=== PATIENT | male | born 1960 | race Caucasian/White ===

== ENCOUNTER 2016-11-29 10:42 | Day surgery (SDC) | payer BC, OTHER ==
--- NOTE | 2016-11-29 08:22 | HP ---
PROCEDURE DATE: 11/29/16 HISTORY OF PRESENT ILLNESS: The patient is a 56 y/o with history of polyps in the past. Last colonoscopy 8 or 9 years ago. He denies any bloody stools. Has some problems with bowel movements off and on, some bloating, and some right-sided abdominal aches at times. PAST MEDICAL HISTORY: Hypertension. CURRENT MEDICATIONS: Lisinopril, baby aspirin, Prilosec, hydrochlorothiazide. ALLERGIES: NKDA. PAST SURGICAL HISTORY: Left ankle, both shoulders as well as colonoscopy in the past. FAMILY HISTORY: Brother with colon cancer. SOCIAL HISTORY: He denies smoking. He does chew 1 can a day. Does drink some alcohol. Denies abuse. REVIEW OF SYSTEMS: 12 systems reviewed. No chest pain or palpitations. Other systems negative or noncontributory other than above and per preadmission questionnaire. PHYSICAL EXAMINATION: GENERAL: No acute distress. HEENT: Sclerae nonicteric. NECK: No JVD. CHEST: Equal excursion. Nonlabored breathing. CVS: Regular rate and rhythm. ABDOMEN: Soft. No peritoneal signs. EXTREMITIES: No significant edema. NEURO: Alert, moving extremities symmetrically. No gross motor deficits noted. IMPRESSION: SOME VAGUE RIGHT ABDOMINAL ACHES AND SOME CHANGE IN BOWEL HABITS WITH OVERALL HISTORY OF POLYPS IN THE PAST IN NEED OF FOLLOW-UP SCREENING COLONOSCOPY. Will proceed with follow-up screening colonoscopy as an outpatient under MAC anesthesia. General risks of bleeding; infection; small risk of bowel injury or perforation; small risk of missed or nondiagnosis or inability to diagnose the etiology of his symptoms; general risk of anesthesia or sedation; risk of bowel prep; postoperative risk of nausea, vomiting, or cramping or inability to diagnose the cause of symptoms. He understands and agrees to the planned procedure. Will proceed with outpatient screening colonoscopy.
[~2016-11-29 10:42] MED LIST: DIPRIVAN 200 MG/20 ML IV ONE; Lactated Ringers 1,000 ML IV SCH; Versed 2 MG/2 ML Injection IV ONE
--- NOTE | 2016-11-29 13:02 | OP ---
SURGERY DATE/TIME: 11/29/2016 1145 PREOPERATIVE DIAGNOSIS: History of polyps, need for follow up screening colonoscopy. POSTOPERATIVE DIAGNOSES: 1) Somewhat poor prep limiting the exam. 2) Very tortuous colon. 3) Small polyps rectum and transverse colon, small raised lesion sigmoid colon and descending colon. 4) Diverticulosis. 5) Internal and external hemorrhoids. 6) Somewhat poor prep limiting exam. PROCEDURES: 1) Colonoscopy to terminal ileum. 2) Retrograde ileoscopy. 3) Hot snare polypectomy small rectal polyp. 4) Hot biopsy of small polyp distal transverse colon. 5) Hot biopsy descending colon, small raised lesion versus hyperplastic lesion. 6) Hot biopsy small raised lesion versus early polyp sigmoid colon. Again hot snare polypectomy with small rectal polyp. SURGEON: Dr. Nir Mcknight. ANESTHESIA: MAC. ESTIMATED BLOOD LOSS: Minimal. INDICATIONS: As noted above. Risks and benefits explained in detail but not limited to and consent obtained. DESCRIPTION OF PROCEDURE AND FINDINGS: The patient is taken to the operating room. MAC anesthesia induced. After official time out and no disagreement with planned procedure, digital rectal exam did not reveal any rectal masses. He did have some small internal and external hemorrhoids. Video colonoscope inserted and passed up the tortuous sigmoid, descending and transverse colon requiring positioning on his back and pushing on the abdomen to reduce the looping. The scope was able to be passed to the cecum and up into the terminal ileum. Retrograde ileoscopy was performed and was grossly unremarkable. On withdraw of the scope prep overall was somewhat poor with liquidy semi-solid stool and some foamy stool limiting the exam for small lesions. This was suction irrigated as well as possible but did limit the exam. The scope is slowly and carefully withdrawn. In the distal transverse colon small polyp was removed with hot biopsy forceps and brief bursts of cautery. Good hemostasis noted. In the descending colon small raised lesions removed with hot biopsy forceps with brief bursts of cautery. Good hemostasis noted. Otherwise the scope pulled back in the sigmoid. Another small raised lesion versus early polyp or hyperplastic lesions removed with hot biopsy forceps with brief bursts of cautery. Good hemostasis noted. The scope pulled back and retroflexed in the rectum. Small polyp noted in the mid to distal rectum this was removed with hot snare polypectomy with brief bursts of cautery. Good hemostasis. This was about 3 mm in size. Otherwise he had some diverticulosis, had some small internal and external hemorrhoids. There were no signs of any large polyps, masses or obstructing lesions. Good hemostasis. Findings were discussed with the family out in the waiting area. He was transferred back to the recovery room in stable condition.
[2016-11-29 13:07] VITALS: PULSE 68; O2SAT 98
[2016-11-29 13:31] VITALS: BP 164/96
== END 2016-11-29 13:25 | disposition home or self-care (01) ==
LOC: SDC 10:42
PROVIDERS: ATTEND Surgery
PROC: 0DJD8ZZ Inspection of Lower Intestinal Tract, Via Natural or Artificial Opening Endoscopic (ICD-10-PCS; principal; 2016-11-29)
PROC: 0DBP8ZX Excision of Rectum, Via Natural or Artificial Opening Endoscopic, Diagnostic (ICD-10-PCS; 2016-11-29)
PROC: 0DBL8ZX Excision of Transverse Colon, Via Natural or Artificial Opening Endoscopic, Diagnostic (ICD-10-PCS; 2016-11-29)
PROC: 0DBN8ZX Excision of Sigmoid Colon, Via Natural or Artificial Opening Endoscopic, Diagnostic (ICD-10-PCS; 2016-11-29)
PROC: 0DBM8ZX Excision of Descending Colon, Via Natural or Artificial Opening Endoscopic, Diagnostic (ICD-10-PCS; 2016-11-29)
DX: K62.1 Rectal polyp (principal); D12.3 Benign neoplasm of transverse colon; K63.9 Disease of intestine, unspecified; Z86.010 Personal history of colon polyps; Z12.11 Encounter for screening for malignant neoplasm of colon; K57.90 Diverticulosis of intestine, part unspecified, without perforation or abscess without bleeding; K64.4 Residual hemorrhoidal skin tags; K64.8 Other hemorrhoids; I10 Essential (primary) hypertension; Z79.899 Other long term (current) drug therapy
CPT/HCPCS: 00810; 36415; 88305; J2250; J2704

== ENCOUNTER 2019-02-12 16:03 | Inpatient (IN) | payer BC ==
--- NOTE | 2019-02-12 16:44 | ERPHSYRPT ---
- History of Present Illness Time Seen by Provider: 02/12/19 16:40 Source: patient Exam Limitations: no limitations Patient Subjective Stated Complaint: pt was sent over from x ray for multi DVT. he states he has been sob and has swelling to right calf for a couple days.he was told by [facility] family doc to come to er . Triage Nursing Assessment: pt walked in, resp labored, no cough, skin w/d/p,iv to right arm from x ray, Physician History: Pt is c/o shortness of breath for few days, had mid sternal chest pain yesterday , but resolved. He had outpatient evaluation today, venous Doppler of the right leg and CT angiogram of the lungs, revealed bilateral, nonoccluding PE and right occluding DVT. Pt has been stable, denies current pain, severe SOB, dizziness. Timing/Duration: day(s) (2) Activities at Onset: none Severity of Dyspnea-Max: mild Severity of Dyspnea-Current: mild Possible Cause: no prior episodes Modifying Factors: Improves With: activity Associated Symptoms: intermittent Allergies/Adverse Reactions: No Known Drug Allergies Allergy (Verified 02/12/19 16:25) Home Medications: Hydrochlorothiazide 25 mg [hydroDIURIL 25 MG] 25 mg PO DAILY 11/19/16 [ History] Lisinopril 40 mg PO DAILY 11/19/16 [History] Omeprazole 20 MG [Prilosec 20 mg] 20 mg PO DAILY 11/19/16 [History] Amlodipine Besylate 5 mg [Norvasc 5 mg] 5 mg PO DAILY 11/29/16 [History] Glucosam/Chond/Collagen/Hyalur [Glucosamine Chondroitin Cap] 40 mg PO DAILY 11/10 [History] Allopurinol [Zyloprim] 300 mg DAILY 02/12/19 [History] Hx Influenza Vaccination/Date Given: Yes Hx Pneumococcal Vaccination/Date Given: Yes Immunizations Up to Date: Yes - Review of Systems Constitutional: No Symptoms Ears, Nose, & Throat: No Symptoms Respiratory: Dyspnea Cardiac: No Symptoms Abdominal/Gastrointestinal: No Symptoms Musculoskeletal: No Symptoms Skin: No Symptoms Neurological: No Symptoms All Other Systems: Reviewed and Negative - Past Medical History Pertinent Past Medical History: Yes Neurological History: No Pertinent History ENT History: No Pertinent History Cardiac History: Hypertension Respiratory History: Asthma, Pneumonia Endocrine Medical History: No Pertinent History Musculoskeletal History: Fractures, Osteoarthritis, Other GI Medical History: GERD History: No Pertinent History Psycho-Social History: No Pertinent History Male Reproductive Disorders: No Pertinent History Other Medical History: LEFT KNEE ARTHROSCOPY 07/14, BILATERAL SHOULDER ARTHROSCOPY FOR BONE SPURS, RUPTURED BURSE, AND TENDON REPAIR (LEFT BICEPS) 2003. ORIF LEFT FOOT 1989 - Past Surgical History Past Surgical History: Yes Neuro Surgical History: No Pertinent History Cardiac: No Pertinent History Respiratory: No Pertinent History Gastrointestinal: No Pertinent History Genitourinary: No Pertinent History Musculoskeletal: Orthopedic Surgery, Other Male Surgical History: No Pertinent History Other Surgical History: pt states he has had rotator cuff repair on both shoulders, left ankle surgically repaired that still has screws in it. Pt has had cancerous moles removed as well. - Social History Smoking Status: Smoker, status unknown Exposure to second hand smoke: No Drug Use: none Patient Lives Alone: No - Nursing Vital Signs Nursing Vital Signs: Initial Vital Signs Temperature 97.5 F 02/12/19 16:16 Pulse Rate 87 02/12/19 16:16 Respiratory Rate 20 02/12/19 16:16 Blood Pressure 135/77 02/12/19 16:16 O2 Sat by Pulse Oximetry 98 02/12/19 16:16 Pain Scale Pain Intensity 7 - Physical Exam General Appearance: no apparent distress Eye Exam: eyes nml inspection Ears, Nose, Throat Exam: normal ENT inspection Neck Exam: normal inspection, non-tender, supple, No carotid bruit, No JVD Respiratory Exam: normal breath sounds, lungs clear, airway intact Cardiovascular/Chest Exam: normal heart sounds, regular rate/rhythm, normal peripheral pulses, No murmur, No edema, No JVD Abdominal/Gastrointestinal Exam: soft, normal bowel sounds Extremity Exam: normal inspection, no pedal edema, calf tenderness (right: mild) , No pedal edema, No andrew's sign Peripheral Pulses Exam: dorsalis-pedis (R): 2+, dorsalis-pedis (L): 2+ Neurologic Exam: alert, oriented x 3, normal mood/affect Skin Exam: normal color, warm, dry, No rash, No cyanosis, No diaphoresis Lymphatic Exam: No adenopathy SpO2 Interpretation: normal SpO2: 98 O2 Delivery: Room Air - Course Nursing assessment & vital signs reviewed: Yes EKG Interpreted by Me: RATE (82/min), Left Keo Deviation, NORMAL INTERVALS, NORMAL QRS, NORMAL ST-T Ordered Tests: Active Orders 24 hr Category Date Time Status EKG-ER Only STAT Care 02/12/19 16:37 Active IV Insertion STAT Care 02/12/19 16:37 Active MAGNESIUM Stat Lab 02/12/19 15:35 Received TROPONIN Q3H Lab 02/12/19 15:35 Received TROPONIN Q3H Lab 02/12/19 19:45 Ordered TROPONIN Q3H Lab 02/12/19 22:45 Ordered TROPONIN Q3H Lab 02/13/19 01:45 Ordered TROPONIN Q3H Lab 02/13/19 04:45 Ordered Medication Summary Generic Name Dose Route Start Last Admin Trade Name Freq PRN Reason Stop Dose Admin Sodium Chloride 1,000 mls @ 999 mls/hr 02/12/19 17:05 02/12/19 17:16 Sodium Chloride 0.9% 1000 Ml IV 02/12/19 18:05 999 mls/hr .Q1H1M STA Administration Discontinued Medications Generic Name Dose Route Start Last Admin Trade Name Freq PRN Reason Stop Dose Admin Enoxaparin Sodium 110 mg 02/12/19 17:06 Enoxaparin Sodium 1 mg/kg (110 mg) 02/12/19 17:07 SQ NOW ONE Enoxaparin Sodium Confirm 02/12/19 17:20 Enoxaparin Sodium Administered 02/12/19 17:21 Dose 120 mg SQ .STK-MED ONE Fentanyl Citrate 50 mcg 02/12/19 17:05 02/12/19 17:16 Sublimaze 100 Mcg/2 Ml IV 02/12/19 17:06 50 mcg STAT ONE Administration Fentanyl Citrate Confirm 02/12/19 17:08 Sublimaze 100 Mcg/2 Ml Administered 02/12/19 17:09 Dose 100 mcg .ROUTE .STK-MED ONE Sodium Chloride Confirm 02/12/19 17:08 Sodium Chloride 0.9% 1000 Ml Administered 02/12/19 17:09 Dose 1,000 mls @ ud .ROUTE .STK-MED ONE Ondansetron HCl 4 mg 02/12/19 17:05 02/12/19 17:16 Zofran 4 Mg/2 Ml Vial IV 02/12/19 17:06 4 mg STAT ONE Administration Ondansetron HCl Confirm 02/12/19 17:07 Zofran 4 Mg/2 Ml Vial Administered 02/12/19 17:08 Dose 4 mg .ROUTE .STK-MED ONE - Progress Progress: unchanged Air Movement: good Progress Note: 02/12/19 17:26 Pt has been stable, O 2 sat: 98 % on RA, given Fentanyl for pain, and started on IV saline, also given 110 mg Lovenox SQ and called Dr Jenkins, discussed this patient's case in details, she accepted patient to be admitted for observation, patient was informed and agreed. Discussed with .: Gregory Will see patient in: hospital (observation) Counseled pt/family regarding: lab results, diagnosis, rad results - Departure Departure Disposition: Observation Clinical Impression: Pulmonary embolism Qualifiers: Pulmonary embolism type: unspecified Chronicity: acute Acute cor pulmonale presence: without acute cor pulmonale Qualified Code(s): I26.99 - Other pulmonary embolism without acute cor pulmonale Deep venous thrombosis Qualifiers: DVT location: lower extremity Affected thrombotic vein of extremity: popliteal Chronicity: acute Laterality: right Qualified Code(s): I82.431 - Acute embolism and thrombosis of right popliteal vein Clinical Impression: (Ruled Out): Pulmonary embolism and infarction Condition: Stable Critical Care Time: No Referrals: ENRICO QUIJANO [Primary Care Provider] -
[2019-02-12] MEDS ORDERED: Zofran 4 MG/2 ML VIAL IV ONE (17:05)
[2019-02-12] MEDS ORDERED: SUBLIMAZE 100 MCG/2 ML IV ONE (17:05)
[2019-02-12] MEDS ORDERED: Sodium Chloride 0.9% 1000 ML 1,000 ML IV STA (17:05)
[2019-02-12] MEDS ORDERED: ENOXAPARIN SODIUM SQ ONE ×2 (17:06→17:20)
[2019-02-12] MEDS ORDERED: Zofran 4 MG/2 ML VIAL ONE (17:07)
[2019-02-12] MEDS ORDERED: Sodium Chloride 0.9% 1000 ML 1,000 ML ONE (17:08)
[2019-02-12] MEDS ORDERED: SUBLIMAZE 100 MCG/2 ML ONE (17:08)
[2019-02-12] MEDS ORDERED: Zofran 4 MG/2 ML VIAL IV PRN (17:30)
[2019-02-12] MEDS ORDERED: DUONEB 0.5-3 MG/3 ml Neb IH PRN (17:30)
[2019-02-12] MEDS: MORPHINE SULFATE 4 MG INJ IV PRN ×2 (18:56→22:59)
[2019-02-13 04:45] LABS: Basophil (Absolute #) 0.06 (0-0.4); Eosinophil % 3.8 % (0.00-5.0); Eosinophil (Absolute #) 0.23 (0-0.5); Granulocyte Absolute (ANC) 2.25 (1.4-6.9); Granulocytes % 37.1 % (36.0-66.0); Hematocrit 40.8 % (42-50); Hemoglobin 13.5 gm/dl (12.5-18.0); Lymphocyte (Absolute #) 2.38 (1.0-4.6); Lymphocytes % 39.2 % (24.0-44.0); Mean Cell Volume 93.4 fl (78-100); Mean Corpuscular Hemoglobin 30.9 pg (26-32); Mean Corpuscular Hgb Concent. 33.1 g/dl (32-36); Mean Platelet Volume 9.9 fl (6-9.5); Monocyte (Absolute #) 1.15 (0.0-1.3); Monocytes % 18.9 % (0.0-12.0); Platelet Count 145 K/mm3 (150-450); Red Blood Count 4.37 M/mm3 (4.1-5.6); Red Cell Distribution Width 12.3 % (11.5-14.0); White Blood Count 6.1 K/mm3 (4.0-10.5)
[2019-02-13 04:51] LABS: INR 1.1 (0.8-3.0); PROTIME 12.5 SECONDS (8.83-12.87)
[2019-02-13 04:57] LABS: ANION GAP 9.3 MEQ/L (5-15); BLOOD UREA NITROGEN 11 mg/dL (9-20); CHLORIDE 101 mmol/L (98-107); Calcium 8.3 mg/dL (8.4-10.2); Carbon Dioxide 28 mmol/L (22-30); Creatinine 1 0.68 mg/dL (0.66-1.25); Glucose 111 mg/dL (74-106); Potassium 3.8 mmol/L (3.5-5.1); SODIUM 135 mmol/L (137-145)
[2019-02-13] MEDS: ENOXAPARIN SODIUM SQ SCH ×2 (06:35→17:48)
--- NOTE | 2019-02-13 09:26 | HP ---
HISTORY OF PRESENT ILLNESS: This is a 58 year-old patient of nurse practitioner, Sapna Guzman, who presented to her office yesterday complaining of right leg pain as well as swelling and also shortness of breath. He reports that last week his right leg starting hurting and the pain got worse on Tuesday. He had seen Nurse Practitioner Megan on and was to have an x-ray of his knee because his knee had been a little bit swollen and tender. He reports the swelling continued to get worse over the weekend. By Tuesday he reports that he had trouble walking on his leg and the swelling was worse. He started to have pain in his calf on Tuesday and it was also worse Tuesday. He reports he had dyspnea on Tuesday and chest pain Tuesday night. He denies any injury to his leg. His nurse practitioner ordered a Doppler of his right lower extremity and a d-dimer and then also a CT scan of his chest. He was found to have nonobstructing bilateral pulmonary emboli and a right DVT. He was sent to the ER for stabilization. No history of blood clot for him. No long car rides. No recent surgery. His last surgery was May 2018 when he had his left knee replaced. He reports his maternal grandmother had a deep venous thrombosis and he had a maternal aunt that had a clotting problem. His mother has not had any clotting problems. The patient reports the swelling and pain is better in his right leg after coming into the hospital. He reports he did not sleep well and is tired today. REVIEW OF SYSTEMS: No palpitations. He has had constipation. No diarrhea. Normal urination. He had tactile fever. No rashes. MEDICATIONS: Please see the home medication reconciliation form which I have reviewed. ALLERGIES: NKDA. PAST MEDICAL HISTORY: Gout. Hypertension. Hyperlipidemia. Bronchial asthma but he does not use an inhaler at home. PAST SURGICAL HISTORY: Left knee replaced May 2018 in [place]. He had arthroscopic surgery of his left knee June 2017. He has two screws in his left foot after he had a fracture. He has had bilateral shoulder arthroscopy. Tonsil and adenoidectomy as a child. SOCIAL HISTORY: He is . He quit smoking 12 years ago, was smoking one-half to one pack per day. He does chew tobacco. He has thought about quitting. Alcohol use he reports a half a case per weekend. He denies any withdrawal symptoms. 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 FAMILY HISTORY: His mother has congestive heart failure and asthma. His father was at 40 in a car accident and was a heavy smoker. PHYSICAL EXAMINATION: VITAL SIGNS: Temperature current 98.5F, temperature max 100.4F, heart rate 69 to 96 currently 75, respiratory rate 16 to 24 currently 18, blood pressure 100 to 135 over 54 to 75, weight 106 kg. Oxygen saturation 90 to 97% on 2 liters cannula. He was on room air until this a.m. GENERAL: The patient is a pleasant talkative man sitting up in bed in no acute distress. CVS: He has a regular rate and rhythm. No murmurs, gallops or rubs are appreciated. CHEST: He has fine crackles at the left base. No wheezing. Equal breath sounds. No tachypnea. No retractions. ABDOMEN: Soft, nontender, nondistended with normal bowel sounds. EXTREMITIES: Mild swelling of his right lower extremity. No clubbing, cyanosis or edema. He has +2 dorsalis pulses bilaterally and radial pulses bilaterally. SKIN: No rashes. LABORATORY DATA AND TESTS: His PLT count was 145,000 this a.m. Sodium 135, chloride 111. He has had serial negative troponins. He has been on telemetry with no events. EKG is sinus rhythm, no ST changes. Heart rate 82. Normal EKG. As an outpatient before his admission he had chest CT that had shown new diffuse bilateral nonoccluding emboli and a Doppler of his right lower extremity that revealed occluding deep venous thrombosis in the mid to distal femoral vein, popliteal vein and posterior tibial vein. Please see the radiologist report for the full dictation. ASSESSMENT AND PLAN: 1) BILATERAL PULMONARY EMBOLI: He was started on Lovenox in the emergency room which we are continuing 1 mg/kg every 12 hours. His case was discussed with cryptologist, Dr. John Barraza, and he plans to come to see him tomorrow. Will plan to continue the Lovenox for at least two days before switching to oral anticoagulation. I have ordered Doppler of his left lower extremity as well. He is on telemetry and may ambulate to a bedside commode but no long walks. He, of course, will need to be on oral anticoagulation for at least three months and I discussed with the patient will need to choose between the newer anticoagulants or Coumadin. At this time though we are continuing Lovenox. We are watching his vital signs closely, will call order if his blood pressure is low to call or heart rate high. Please see those orders in the chart. When I discussed with Dr. Barraza, he wanted to check CEA and PSA to rule out occult cancer. The patient is followed closely with colonoscopies as an outpatient as he has a strong family history of colon cancer. 2) RIGHT DEEP VENOUS THROMBOSIS: Again, he is on anticoagulation as above. Also, check his left lower extremity Doppler to look for clot there. 3) HYPERTENSION: Currently well controlled, will hold his antihypertensive and watch his blood pressure carefully. 4) HYPERLIPIDEMIA: Will continue with statin. 5) GOUT: Will continue his Allopurinol. 6) ALCOHOL DEPENDENCE: Will watch for signs of withdrawal. 7) THROMBOCYTOPENIA: Will recheck his platelet count in the a.m. and watch this closely as he is on heparin product. 8) HYPONATREMIA: Will start some gentle fluids with normal saline at 60 ml/hour. 9) DEEP VENOUS THROMBOSIS PROPHYLAXIS: He is on Lovenox so will avoid KORTNEY hose due to the deep venous thrombosis.
[2019-02-13] MEDS ORDERED: MEDICATION INTERVENTION PO SCH (09:45)
[2019-02-13] MEDS ORDERED: CHOND PO SCH (10:00)
[2019-02-13] MEDS ORDERED: GLUCOSAM PO SCH (10:00)
[2019-02-13] MEDS ORDERED: NON-FORMULARY ITEM (Rosuvastatin Calcium [Crestor] 10 MG) PO SCH (10:00)
[2019-02-13] MEDS ORDERED: COLLAGEN PO SCH (10:00)
[2019-02-13] MEDS ORDERED: NON-FORMULARY ITEM (Omeprazole 20 Mg [Prilosec 20 Mg] 20 MG) PO SCH (10:00)
[2019-02-13] MEDS ORDERED: HYALUR PO SCH (10:00)
[2019-02-13] MEDS: Colace 100 MG PO SCH ×2 (10:13→20:56)
[2019-02-13] MEDS: ZOCOR 20MG PO SCH (10:13)
[2019-02-13] MEDS: ZYLOPRIM 300 MG PO SCH (10:14)
[2019-02-13] MEDS: Protonix 40MG Tablet PO SCH (10:14)
--- NOTE | 2019-02-13 10:33 | XRAY ---
Indication: PE. Right lower extremity DVT. Two-dimensional sonogram and color Doppler imaging of the major venous vessels of the left leg was performed. Comparison: None No echogenic thrombus seen in the examined deep venous vessels of the left leg including greater saphenous vein. However the common femoral vein did not compress, a secondary sign for DVT. Remaining veins demonstrate normal compressibility with normal venous waveforms with and without augmentation. Impression: Noncompressible common femoral vein, a secondary sign for DVT. Remaining left leg negative for DVT.
[2019-02-13] MEDS ORDERED: BENADRYL 25 MG CAPSULE PO PRN (18:40)
[2019-02-13] MEDS ORDERED: BENADRYL 25 MG CAPSULE ONE (20:38)
[2019-02-13] MEDS: TYLENOL 325 MG PO PRN (20:56)
[2019-02-13] MEDS: BENADRYL 25 MG CAPSULE PO PRN (20:56)
[2019-02-13] MEDS: Sodium Chloride 0.9% 1000 ML 1,000 ML IV SCH (21:00)
[2019-02-14 05:47] LABS: BASOPHIL % 1.3 % (0.0-0.4); Basophil (Absolute #) 0.06 (0-0.4); Eosinophil % 6.5 % (0.00-5.0); Eosinophil (Absolute #) 0.29 (0-0.5); Granulocyte Absolute (ANC) 1.88 (1.4-6.9); Granulocytes % 42.1 % (36.0-66.0); Hematocrit 40.7 % (42-50); Hemoglobin 13.5 gm/dl (12.5-18.0); Lymphocyte (Absolute #) 1.36 (1.0-4.6); Lymphocytes % 30.4 % (24.0-44.0); Mean Cell Volume 94.4 fl (78-100); Mean Corpuscular Hemoglobin 31.3 pg (26-32); Mean Corpuscular Hgb Concent. 33.2 g/dl (32-36); Mean Platelet Volume 11.1 fl (6-9.5); Monocyte (Absolute #) 0.88 (0.0-1.3); Monocytes % 19.7 % (0.0-12.0); Platelet Count 153 K/mm3 (150-450); Red Blood Count 4.31 M/mm3 (4.1-5.6); Red Cell Distribution Width 11.9 % (11.5-14.0); White Blood Count 4.5 K/mm3 (4.0-10.5)
[2019-02-14 05:56] LABS: BLOOD UREA NITROGEN 6 mg/dL (9-20); CHLORIDE 103 mmol/L (98-107); Calcium 8.8 mg/dL (8.4-10.2); Carbon Dioxide 26 mmol/L (22-30); Glucose 139 mg/dL (74-106); Potassium 3.9 mmol/L (3.5-5.1); SODIUM 136 mmol/L (137-145)
[2019-02-14] MEDS: ENOXAPARIN SODIUM SQ SCH ×2 (06:46→17:40)
[2019-02-14] MEDS: TYLENOL 325 MG PO PRN ×3 (07:54→20:19)
--- NOTE | 2019-02-14 08:21 | PCM.NOTE ---
Date and Time: 02/14/19815 Subjective Assessment: Patient reports he started to have some pain in his right calf again yesterday. He states it is not as bad as when the problem first started. He continues to feel short of breath at times. He has been able to ambulated to the bathroom and doesn't want to use the bedside commode. He was able to have a stool. He reports 4 hours of sleep last night after taking benadryl. Dr. Donna Barraza, lpn per diem, plans to see patient today. - Review of Systems Constitutional: Fatigue Eyes: No Symptoms Ears, Nose, & Throat: No Symptoms Respiratory: Short Of Breath Cardiac: No Chest Pain Abdominal/Gastrointestinal: No Abdominal Pain, No Diarrhea, No Constipation Genitourinary Symptoms: No Symptoms Musculoskeletal: Other (right calf pain) Objective Exam General Appearance: no apparent distress, alert Neurologic Exam: alert, cooperative, normal mood/affect Skin Exam: normal color, warm, dry, No rash Respiratory Exam: normal breath sounds, lungs clear, No crackles/rales, No rhonchi, No wheezing Cardiovascular Exam: regular rate/rhythm, normal heart sounds, No murmur, No friction rub, No gallop Gastrointestinal/Abdomen Exam: soft, normal bowel sounds, No tenderness, No distention, No mass Extremity Exam: other (right calf bigger than left, no c/c) Back Exam: other OBJECTIVE DATA Vital Signs: Vital Signs - 24 hr Temp Pulse Resp BP Pulse Ox 02/14/19 08:00 98.3 F 78 18 142/79 94 L 02/14/19 04:10 98.5 F 72 16 143/77 94 L 02/14/19 04:00 16 02/14/19 00:18 98.4 F 75 20 134/74 97 02/14/19 00:00 20 02/13/19 20:13 79 19 98 02/13/19 20:10 98.7 F 73 21 130/80 97 02/13/19 20:00 19 02/13/19 16:00 98.1 F 78 18 134/87 98 02/13/19 12:00 78 18 114/63 97 Oxygen-Last 24 hours O2 Percentage 2 Liters = 28% O2 Percentage 2 Liters = 28% O2 Percentage 2 Liters = 28% O2 Percentage 2 Liters = 28% O2 Percentage 2 Liters = 28% O2 Percentage 2 Liters = 28% Pain Assessment - Last Documented Pain Intensity 2 Pain Scale Used 0-10 Pain Scale Intake and Output: Intake & Output 02/12/19 02/13/19 02/14/19 02/15/19 06:59 06:59 06:59 06:59 Intake Total 975 0792 Balance 720 2172 Weight 106 kg Lab Results: Lab Results-Last 24 Hours 02/13/19 02/13/19 02/14/19 Range/Units 05:00 08:45 05:18 WBC 4.5 (4.0-10.5) K/mm3 RBC 4.31 (4.1-5.6) M/mm3 Hgb 13.5 (12.5-18.0) gm/dl Hct 40.7 L (42-50) % MCV 94.4 (78-100) fl MCH 31.3 (26-32) pg MCHC 33.2 (32-36) g/dl RDW 11.9 (11.5-14.0) % Plt Count 153 (150-450) K/mm3 MPV 11.1 H (6-9.5) fl Gran % 42.1 (36.0-66.0) % Eos # (Auto) 0.29 (0-0.5) Absolute Lymphs (auto) 1.36 (1.0-4.6) Absolute Monos (auto) 0.88 (0.0-1.3) Lymphocytes % 30.4 (24.0-44.0) % Monocytes % 19.7 H (0.0-12.0) % Eosinophils % 6.5 H (0.00-5.0) % Basophils % 1.3 (0.0-0.4) % Absolute Granulocytes 1.88 (1.4-6.9) Basophils # 0.06 (0-0.4) Sodium (137-145) mmol/L Potassium (3.5-5.1) mmol/L Chloride (98-107) mmol/L Carbon Dioxide (22-30) mmol/L Anion Gap (5-15) MEQ/L BUN (9-20) mg/dL Creatinine (0.66-1.25) mg/dL Estimated GFR ML/MIN Glucose (74-106) mg/dL Calcium (8.4-10.2) mg/dL Carcinoembryonic Ag 1.6 (0.0-3.1) ng/mL PSA Screen 0.598 (0-4) ng/mL 02/14/19 Range/Units 05:18 WBC (4.0-10.5) K/mm3 RBC (4.1-5.6) M/mm3 Hgb (12.5-18.0) gm/dl Hct (42-50) % MCV (78-100) fl MCH (26-32) pg MCHC (32-36) g/dl RDW (11.5-14.0) % Plt Count (150-450) K/mm3 MPV (6-9.5) fl Gran % (36.0-66.0) % Eos # (Auto) (0-0.5) Absolute Lymphs (auto) (1.0-4.6) Absolute Monos (auto) (0.0-1.3) Lymphocytes % (24.0-44.0) % Monocytes % (0.0-12.0) % Eosinophils % (0.00-5.0) % Basophils % (0.0-0.4) % Absolute Granulocytes (1.4-6.9) Basophils # (0-0.4) Sodium 136 L (137-145) mmol/L Potassium 3.9 (3.5-5.1) mmol/L Chloride 103 (98-107) mmol/L Carbon Dioxide 26 (22-30) mmol/L Anion Gap 11.0 (5-15) MEQ/L BUN 6 L (9-20) mg/dL Creatinine 0.50 L (0.66-1.25) mg/dL Estimated GFR > 60.0 ML/MIN Glucose 139 H (74-106) mg/dL Calcium 8.8 (8.4-10.2) mg/dL Carcinoembryonic Ag (0.0-3.1) ng/mL PSA Screen (0-4) ng/mL Radiology Exams: Radiology Procedures Category Date Time Status Ultrasound Unilateral Extremities [VENOUS UNILAT/ Exams 02/13/19 10:14 Completed LIMITED EXTREMIT] [US] Routine Assessment/Plan (1) Pulmonary emboli Current Visit: Yes Status: Acute Assessment & Plan: Continue lovenox 1 mg/kg subcutanously q [address] Donna Barraza to see patient today. He had recommended continuing lovenox for at least 48 hours before starting an oral anticoagulant. Patient has been requiring 2 L NC and does not wear oxygen at home. CEA and PSA as requested by Dr. Barraza were normal. Will need hypercoaguable work up in the future. Code(s): I26.99 - OTHER PULMONARY EMBOLISM WITHOUT ACUTE COR PULMONALE (2) Deep venous thrombosis Current Visit: Yes Status: Acute Qualifiers: DVT location: lower extremity Affected thrombotic vein of extremity: popliteal Chronicity: acute Laterality: right Qualified Code(s): I82.431 - Acute embolism and thrombosis of right popliteal vein Assessment & Plan: Continue anticoagulation as above. Code(s): I82.409 - ACUTE EMBOLISM AND THOMBOS UNSP DEEP VN UNSP LOWER EXTREMITY (3) Essential hypertension Current Visit: Yes Status: Acute Assessment & Plan: He is currently off of antihypertensives but his systolic bp is now in the 140' s so will plan to start medications back slowly as needed. Code(s): I10 - ESSENTIAL (PRIMARY) HYPERTENSION (4) Hyperlipidemia Current Visit: Yes Status: Acute Assessment & Plan: Continue statin. Code(s): E78.5 - HYPERLIPIDEMIA, UNSPECIFIED (5) Gout Current Visit: Yes Status: Acute Assessment & Plan: Continue allopurinol. Code(s): M10.9 - GOUT, UNSPECIFIED (6) Hyponatremia Current Visit: Yes Status: Acute Assessment & Plan: Improved with IV fluids. Code(s): E87.1 - HYPO-OSMOLALITY AND HYPONATREMIA (7) Alcohol dependence Current Visit: Yes Status: Acute Assessment & Plan: No signs of withdrawal at this time. Code(s): F10.20 - ALCOHOL DEPENDENCE, UNCOMPLICATED (8) Thrombocytopenia Current Visit: Yes Status: Resolved Assessment & Plan: Platelet count normal today; continue to monitor.
[2019-02-14] MEDS: ZYLOPRIM 300 MG PO SCH (10:48)
[2019-02-14] MEDS: Colace 100 MG PO SCH ×3 (10:48→21:46)
[2019-02-14] MEDS: ZOCOR 20MG PO SCH (10:48)
[2019-02-14] MEDS: Protonix 40MG Tablet PO SCH (10:48)
[2019-02-14] MEDS: Sodium Chloride 0.9% 1000 ML 1,000 ML IV SCH (14:45)
--- NOTE | 2019-02-14 15:04 | CONS ---
CONSULT DATE: 02/14/2019 HISTORY: Tyler Reyna is a 58 year-old male without significant past pulmonary problems, who recently started experiencing right leg pain. The patient was referred for a Doppler study which was extensively positive. He also reported increasing shortness of breath and he was referred from there to the emergency room where CT was obtained that showed bilateral pulmonary emboli. The patient has since been hospitalized. He has been noted to have marginal oxygenation and has been placed on supplemental oxygen. In addition, he was started on anticoagulation with full dose Lovenox. The patient does report improvement in shortness of breath since being in hospital. He reportedly had history of bronchial asthma but out grew it. His effort tolerance otherwise has been compromised by arthritis more than pulmonary or cardiac symptoms. PAST MEDICAL HISTORY: Positive for history of osteoarthritis requiring multiple orthopedic surgeries. The patient recently was diagnosed having hypertension, borderline diabetes and hyperlipidemia. PAST SURGICAL HISTORY: Left knee replacement. Bilateral shoulder surgery. PERSONAL AND SOCIAL HISTORY: The patient is a nonsmoker. He works for a [employer]. FAMILY HISTORY: Positive for pulmonary embolism in his grandmother and his aunt had vascular insufficiency requiring amputation. MEDICATIONS: Home and current medications are reviewed. ALLERGIES: NKDA. PHYSICAL EXAMINATION: This is a middle aged male who appears comfortable at rest, able to speak without difficulty. Vital signs noted. HEENT: Normocephalic. Oral exam is limited. NECK: Supple. CVS: First and second heart sounds are normal, regular, rhythmic. RESPIRATORY: Shows diminished breath sounds. ABDOMEN: Obese. EXTREMITIES: Left knee scar is noted. Right lower extremity mild tenderness is noted. LABORATORY DATA AND TESTS: CEA is 1.6. Sodium 136, potassium 3.9, chloride 103, bicarb 26, glucose 139, BUN 6, creatinine 0.5. White blood cell count 4.5. Hemoglobin 13.5, hematocrit 40.7, PLT 153,000. PSA 0.59. International normalized ratio 1.1. Troponin I has been negative. CT chest along with venous Doppler's are noted. ASSESSMENT: This is a 58 year old male admitted with: 1) Right lower extremity extensive deep venous thrombosis with multiple bilateral pulmonary emboli likely from fragmentation of clot from right lower extremity. 2) Hypoxemia, transient. 3) History of hypertension. 4) Rule out hypercoagulable state. 5) History of borderline diabetes and hyperlipidemia along with obesity. RECOMMENDATIONS: 1) I discussed with patient pathophysiology of pulmonary thromboembolism. 2) I agree with anticoagulation option discussed. Would benefit from Eliquis 10 mg p.o. b.i.d. x7 days followed by 5 mg p.o. b.i.d. and will initiate this tomorrow. 3) Ambulate gradually. 4) May discharge home when oxygenation remains stable with ambulation. 5) Advised to stay off work for two weeks. I will see the patient in two weeks and follow up so he can be cleared to go back to work. I have discussed with the patient the need for repeating Doppler's as well as CT-angiogram in about four to six months to assess documentation of complete resolution of clot burden. At that point he can possibly be briefly taken off of anticoagulation and checked for hypercoagulable state to determine etiology. Further recommendations pending results of those and clinical improvement. I discussed the plan of care with the patient. Thank you, Dr. Jenkins, for allowing me to participate in the care of your patient.
[2019-02-14] MEDS ORDERED: NORVASC 5 MG PO ONE (17:00)
[2019-02-14] MEDS: BENADRYL 25 MG CAPSULE PO PRN (21:46)
[2019-02-15 04:48] LABS: BASOPHIL % 0.6 % (0.0-0.4); Basophil (Absolute #) 0.03 (0-0.4); Eosinophil % 6.4 % (0.00-5.0); Eosinophil (Absolute #) 0.31 (0-0.5); Granulocyte Absolute (ANC) 1.91 (1.4-6.9); Granulocytes % 39.3 % (36.0-66.0); Hematocrit 40.8 % (42-50); Hemoglobin 13.5 gm/dl (12.5-18.0); Lymphocyte (Absolute #) 1.87 (1.0-4.6); Lymphocytes % 38.6 % (24.0-44.0); Mean Cell Volume 94.7 fl (78-100); Mean Corpuscular Hemoglobin 31.3 pg (26-32); Mean Corpuscular Hgb Concent. 33.1 g/dl (32-36); Mean Platelet Volume 10.4 fl (6-9.5); Monocyte (Absolute #) 0.73 (0.0-1.3); Monocytes % 15.1 % (0.0-12.0); Platelet Count 176 K/mm3 (150-450); Red Blood Count 4.31 M/mm3 (4.1-5.6); Red Cell Distribution Width 11.9 % (11.5-14.0); White Blood Count 4.9 K/mm3 (4.0-10.5)
[2019-02-15 05:01] LABS: ANION GAP 9.9 MEQ/L (5-15); BLOOD UREA NITROGEN 6 mg/dL (9-20); CHLORIDE 105 mmol/L (98-107); Calcium 8.7 mg/dL (8.4-10.2); Carbon Dioxide 28 mmol/L (22-30); Creatinine 1 0.65 mg/dL (0.66-1.25); Glucose 108 mg/dL (74-106); Potassium 4.4 mmol/L (3.5-5.1); SODIUM 138 mmol/L (137-145)
[2019-02-15] MEDS: Sodium Chloride 0.9% 1000 ML 1,000 ML IV SCH (07:37)
[2019-02-15] MEDS: Protonix 40MG Tablet PO SCH (09:43)
[2019-02-15] MEDS: ZYLOPRIM 300 MG PO SCH (09:43)
[2019-02-15] MEDS: ZOCOR 20MG PO SCH (09:44)
[2019-02-15] MEDS: Colace 100 MG PO SCH (09:45)
[2019-02-15] MEDS ORDERED: ELIQUIS 2.5 MG TABLET PO SCH (10:00)
[2019-02-15] MEDS ORDERED: NORVASC 5 MG PO SCH (10:00)
--- NOTE | 2019-02-15 12:53 | PCM.DCORD ---
- Discharge Discharge Date: 02/15/19 Disposition: Home, Self-Care Condition: Fair Prescriptions: New Apixaban [Eliquis] 10 mg PO BID #26 tablet Apixaban [Eliquis] 5 mg PO BID #60 tablet Continue Omeprazole 20 MG [Prilosec 20 mg] 20 mg PO DAILY Amlodipine Besylate 5 mg [Norvasc 5 mg] 5 mg PO DAILY Glucosam/Chond/Collagen/Hyalur [Glucosamine Chondroitin Cap] 40 mg PO DAILY Allopurinol [Zyloprim] 300 mg PO DAILY Rosuvastatin Calcium [Crestor] 10 mg PO DAILY Discontinued Hydrochlorothiazide 25 mg [hydroDIURIL 25 MG] 25 mg PO DAILY Lisinopril 40 mg PO DAILY Additional Instructions: Take Eliquis 10 mg twice a day for a total of 7 days (as written on prescription ) then start Eliquis 5 mg twice a day after this. Try to separate the doses of Eliquis by 12 hours. Do not skip doses of Eliquis. Return to the ER if you have chest pain, shortness of breath, any bleeding or any other concerns. You have not needed as much blood pressure medication as you usually take. I have restarted your amlodipine and we can follow up as an outpatient to see if you will need your other blood pressure medications started at that time. Follow up with: MARYLU RUIZ [ACTIVE STAFF] - 02/28/19 2:30 pm AGAPITO PUGH [ACTIVE STAFF] - 1 Week
[2019-02-15 13:07] VITALS: BP 150/89; PULSE 77; O2SAT 93
--- NOTE | 2019-02-15 14:24 | DS ---
DISCHARGE DIAGNOSES: 1) BILATERAL PULMONARY EMBOLI. 2) RIGHT AND LEFT DEEP VENOUS THROMBOSIS. 3) HYPERTENSION. 4) HYPERLIPIDEMIA. 5) GOUT. 6) ALCOHOL DEPENDENCE. DISCHARGE PHYSICAL EXAMINATION: VITALS: Temperature current 98.1F, temperature max 98.5F, heart rate 78, respiratory rate 17, blood pressure 119 to 146 over 63 to 70, weight 106 kg. Oxygen saturation 94 to 96% on room air. When he ambulated with the respiratory therapist his O2 saturation was 97% on room air at rest and while walking was 96-98%. GENERAL: The patient is a pleasant talkative man sitting up in bed in no acute distress. CVS: He has a regular rate and rhythm. No murmurs, gallops or rubs. CHEST: Clear to auscultation bilaterally. No crackles or wheezes. ABDOMEN: Soft, nontender, nondistended with normal bowel sounds. EXTREMITIES: No clubbing or edema. His right leg is swollen in comparison to his left leg. No pitting edema. HOSPITAL COURSE: 1) BILATERAL PULMONARY EMBOLI: These were found on chest CT done as an outpatient. The patient had been directed to the emergency room for stabilization. He was given Lovenox 1 mg/kg subcutaneously every [address] John Barraza, Swing Manager, saw him during his hospitalization and discussed with the patient oral anticoagulation. He was switched to Eliquis on the day of discharge. He is to take 10 mg twice a day for seven days and 5 mg twice a day after that. We discussed signs of bleeding and not climbing ladders. Dr. Barraza wants him to be off work for two weeks and to follow up with him to release to go back to work. Dr. Barraza also said that he will continue on anticoagulation for four to six months, to repeat the chest CT as well as Doppler's. If there is no clot seen at that time he may go off anticoagulation briefly for blood test to look for underlying causes for the hypercoagulable state. 2) BILATERAL DEEP VENOUS THROMBOSIS: As an outpatient he had extensive deep venous thrombosis in his right leg. The left leg Doppler was concerning for possible deep venous thrombosis as well. Again, he has been fully anticoagulated. He is able to ambulate without any problems. 3) HYPERTENSION: During his hospitalization his blood pressure was on the low end of normal. I held all of his antihypertensives until the day before discharge when I restarted amlodipine 2.5 mg that night. Will plan to have him restart 5 mg daily. He was given 2.5 mg this morning and follow up as an outpatient and may need his blood pressure medication slowly restarted. 4) HYPERLIPIDEMIA: He was continued on a statin. 5) GOUT: He was continued on Allopurinol. 6) ALCOHOL DEPENDENCE: He did not show any signs of withdrawal during this hospitalization. DISCHARGE MEDICATIONS: Please see the discharge order. FOLLOW UP: Please see the discharge order. DISPOSITION: The patient was discharged home in fair condition.
[2019-02-22] MEDS ORDERED: ELIQUIS 2.5 MG TABLET PO SCH (10:00)
== END 2019-02-15 14:00 | disposition home or self-care (01) | DRG 176 ==
LOC: ED 16:03 → OBSVTOIN 18:04 → MED SURG 18:04 → INTOOBSV 18:04
PROVIDERS: ADMIT Internal Medicine; ATTEND Internal Medicine
DX: I26.99 Other pulmonary embolism without acute cor pulmonale (principal); I82.4Z3 Acute embolism and thrombosis of unspecified deep veins of distal lower extremity, bilateral; E87.1 Hypo-osmolality and hyponatremia; I10 Essential (primary) hypertension; E11.9 Type 2 diabetes mellitus without complications; E78.5 Hyperlipidemia, unspecified; R09.02 Hypoxemia; Z79.899 Other long term (current) drug therapy; M10.9 Gout, unspecified; F10.20 Alcohol dependence, uncomplicated; D69.6 Thrombocytopenia, unspecified
CPT/HCPCS: 36000; 36415; 71260; 80048; 82378; 83735; 84484; 85025; 85610; 93005; 93971; 94762; 96360; 96372; 96374; 96375; 99285; G0103; J1650; J2270; J2405; J3010; A9270-GY

== ENCOUNTER 2019-03-15 12:28 | Emergency (ER) | payer BC ==
[2019-03-15] MEDS ORDERED: Sodium Chloride 0.9% 1000 ML 1,000 ML IV STA (12:37)
--- NOTE | 2019-03-15 12:49 | ERPHSYRPT ---
- History of Present Illness Time Seen by Provider: 03/15/19 12:35 Source: patient Exam Limitations: no limitations Physician History: Right lower leg swelling 2 days ago and new fever yesterday. Method of Injury: other (no injury; patient was diagnosed with DVT one month ago and placed on Eliquis 5mg twice daily) Occurred: other (swelling worsened two days ago in the right lower leg; new fever on 03/14/2019 ) Quality: constant, aching, throbbing Severity of Pain-Max: moderate Severity of Pain-Current: mild Lower Extremities Pain: other: right (right posterior lower leg) Modifying Factors: Improves With: nothing Associated Symptoms: none, No unable to bear weight, No dizzy, No fainted, No snapping sensation, No popping sensation Allergies/Adverse Reactions: No Known Drug Allergies Allergy (Verified 02/12/19 16:25) Home Medications: Omeprazole 20 MG [Prilosec 20 mg] 20 mg PO DAILY 11/19/16 [History] Amlodipine Besylate 5 mg [Norvasc 5 mg] 5 mg PO DAILY 11/29/16 [History] Glucosam/Chond/Collagen/Hyalur [Glucosamine Chondroitin Cap] 40 mg PO DAILY 11/10 [History] Allopurinol [Zyloprim] 300 mg PO DAILY 02/12/19 [History] Rosuvastatin Calcium [Crestor] 10 mg PO DAILY 02/12/19 [History] Hx Influenza Vaccination/Date Given: Yes Hx Pneumococcal Vaccination/Date Given: Yes - Review of Systems Constitutional: No Fever, No Chills Eyes: No Eye Pain, No Vision Changes Ears, Nose, & Throat: No Mouth Swelling, No Painful Swallowing, No Stridor Respiratory: No Cough, No Dyspnea Cardiac: No Chest Pain, No Edema, No Syncope Abdominal/Gastrointestinal: No Abdominal Pain, No Nausea, No Vomiting, No Diarrhea, No Hematemesis, No Hematochezia, No Melena Genitourinary Symptoms: No Dysuria, No Hematuria, No Flank Pain Musculoskeletal: No Back Pain, No Neck Pain Skin: No Rash Neurological: No Dizziness, No Focal Weakness, No Parasthesia, No Sensory Changes, No Tremors Psychological: No Symptoms Endocrine: No Symptoms All Other Systems: Reviewed and Negative - Past Medical History Pertinent Past Medical History: Yes Neurological History: No Pertinent History ENT History: No Pertinent History Cardiac History: Hypertension Respiratory History: Asthma, Pneumonia Endocrine Medical History: No Pertinent History Musculoskeletal History: Fractures, Osteoarthritis, Other GI Medical History: GERD History: No Pertinent History Psycho-Social History: No Pertinent History Male Reproductive Disorders: No Pertinent History Other Medical History: LEFT KNEE ARTHROSCOPY 07/14, BILATERAL SHOULDER ARTHROSCOPY FOR BONE SPURS, RUPTURED BURSE, AND TENDON REPAIR (LEFT BICEPS) 2003. ORIF LEFT FOOT 1989 - Past Surgical History Past Surgical History: Yes Neuro Surgical History: No Pertinent History Cardiac: No Pertinent History Respiratory: No Pertinent History Gastrointestinal: No Pertinent History Genitourinary: No Pertinent History Musculoskeletal: Orthopedic Surgery, Other Male Surgical History: No Pertinent History Other Surgical History: pt states he has had rotator cuff repair on both shoulders, left ankle surgically repaired that still has screws in it. Pt has had cancerous moles removed as well. - Social History Smoking Status: Former smoker Exposure to second hand smoke: No Drug Use: none Patient Lives Alone: No - Nursing Vital Signs Nursing Vital Signs: Initial Vital Signs Temperature 98.6 F 03/15/19 12:32 Pulse Rate 98 H 03/15/19 12:32 Respiratory Rate 20 03/15/19 12:32 Blood Pressure 147/87 03/15/19 12:32 O2 Sat by Pulse Oximetry 98 03/15/19 12:32 Pain Scale Pain Intensity 4 - Physical Exam General Appearance: alert Eyes, Ears, Nose, Throat Exam: moist mucous membranes Neck Exam: non-tender, supple Cardiovascular/Respiratory Exam: chest non-tender, normal breath sounds, regular rate/rhythm, no respiratory distress Gastrointestinal/Abdominal Exam: non-tender, soft, No guarding Back Exam: normal inspection, No CVA tenderness, No vertebral tenderness, No rash Hips Exam: bilateral: non-tender, normal inspection, normal range of motion, no evidence of injury Legs Exam: bilateral leg: non-tender, normal inspection, normal range of motion , no evidence of injury Knees Exam: bilateral knee: non-tender, normal inspection, normal range of motion, no evidence of injury Ankle Exam: right ankle: pain (right posterior lower leg), soft tissue tenderness (right posterior lower leg), swelling (45cm circumference (38cm left circumference)), left ankle: normal inspection, bilateral ankle: non-tender, normal range of motion, no evidence of injury Foot Exam: bilateral foot: non-tender, normal inspection, normal range of motion , no evidence of injury DTR - Lower Extremities Exam: ankle (R): 2+, ankle (L): 2+ Neuro/Tendon Exam: normal sensation, normal motor functions Mental Status Exam: alert, oriented x 3, cooperative Skin Exam: normal color, warm, dry, No rash, No petechiae, No cyanosis, No jaundice SpO2 Interpretation: normal O2 Delivery: Room Air - Course Nursing assessment & vital signs reviewed: Yes - Radiology Ultrasound Exam Right Venous Lower Extremity Ultrasound: Other (per radiologist interpretation: In comparison to 02/12/2019 duplex venous study, previous excluding DVT in the distal femoral, popliteal, and posterior tibial veins now appearing non-occluding. No thrombus in the remaining common femoral, DP femoral, and greater saphenous veins which demonstrate normal compressibility and normal venous waveforms. Overall impression: Nonoccluding DVT in the distal femoral, popliteal, and posterior tibial veins) Ordered Tests: Active Orders 24 hr Category Date Time Status IV Insertion STAT Care 03/15/19 12:37 Active VENOUS UNILAT/LIMITED EXTREMIT [US] Stat Exams 03/15/19 12:39 Completed CBC W DIFF Stat Lab 03/15/19 12:51 Completed CK-Creatinine Phosphokinase Stat Lab 03/15/19 12:51 Completed CMP Stat Lab 03/15/19 12:51 Completed Lactic Acid Stat Lab 03/15/19 12:48 Completed NT PRO BNP Stat Lab 03/15/19 12:51 Completed PROTIME WITH INR Stat Lab 03/15/19 12:51 Completed PTT Stat Lab 03/15/19 12:51 Completed TSH [TSH, 3RD Generation] Stat Lab 03/15/19 12:51 Completed UA W/RFX UR CULTURE Stat Lab 03/15/19 15:14 Completed Medication Summary Discontinued Medications Generic Name Dose Route Start Last Admin Trade Name Freq PRN Reason Stop Dose Admin Sodium Chloride 1,000 mls @ 999 mls/hr 03/15/19 12:37 03/15/19 14:38 Sodium Chloride 0.9% 1000 Ml IV 03/15/19 13:37 Infused .Q1H1M STA Infusion Sodium Chloride Confirm 03/15/19 12:53 Sodium Chloride 0.9% 1000 Ml Administered 03/15/19 12:54 Dose 1,000 mls @ ud .ROUTE .K-MED ONE Lab/Rad Data: Laboratory Result Diagrams 03/15/19 12:51 03/15/19 12:51 Laboratory Results 03/15/19 03/15/19 03/15/19 Range/Units 15:14 12:51 12:51 WBC (4.0-10.5) K/mm3 RBC (4.1-5.6) M/mm3 Hgb (12.5-18.0) gm/dl Hct (42-50) % MCV (78-100) fl MCH (26-32) pg MCHC (32-36) g/dl RDW (11.5-14.0) % Plt Count (150-450) K/mm3 MPV (6-9.5) fl Gran % (36.0-66.0) % Eos # (Auto) (0-0.5) Absolute Lymphs (auto) (1.0-4.6) Absolute Monos (auto) (0.0-1.3) Lymphocytes % (24.0-44.0) % Monocytes % (0.0-12.0) % Eosinophils % (0.00-5.0) % Basophils % (0.0-0.4) % Absolute Granulocytes (1.4-6.9) Basophils # (0-0.4) PT 15.1 H (8.83-12.87) SECONDS INR 1.33 (0.8-3.0) APTT 35.5 (24.1-36.1) SECONDS Sodium (137-145) mmol/L Potassium (3.5-5.1) mmol/L Chloride (98-107) mmol/L Carbon Dioxide (22-30) mmol/L Anion Gap (5-15) MEQ/L BUN (9-20) mg/dL Creatinine (0.66-1.25) mg/dL Estimated GFR ML/MIN Glucose (74-106) mg/dL Lactic Acid (0.4-2.0) Calcium (8.4-10.2) mg/dL Total Bilirubin (0.2-1.3) mg/dL AST (17-59) U/L ALT (0-50) U/L Alkaline Phosphatase (38-126) U/L Creatine Kinase (55-170) U/L NT-Pro-B Natriuret Pep (0-900) pg/mL Serum Total Protein (6.3-8.2) g/dL Albumin (3.5-5.0) g/dL TSH 3rd Generation 0.319 L (0.47-4.68) mIU/L Urine Color YELLOW (YELLOW) Urine Appearance CLEAR (CLEAR) Urine pH 5.0 (5-6) Ur Specific [place] 1.021 (1.005-1.025) Urine Protein NEGATIVE (Negative) Urine Ketones NEGATIVE (NEGATIVE) Urine Blood NEGATIVE (0-5) [place]/ul Urine Nitrite NEGATIVE (NEGATIVE) Urine Bilirubin NEGATIVE (NEGATIVE) Urine Urobilinogen NEGATIVE (0-1) mg/dL Ur Leukocyte Esterase NEGATIVE (NEGATIVE) Urine WBC (Auto) NONE (0-5) /HPF Urine RBC (Auto) NONE (0-2) /HPF U Epithel Cells (Auto) NONE (FEW) /HPF Urine Bacteria (Auto) NONE (NEGATIVE) /HPF Urine Mucus (Auto) SLIGHT (NEGATIVE) /HPF Urine Culture Reflexed NO (NO) Urine Glucose NEGATIVE (NEGATIVE) mg/dL 03/15/19 03/15/19 03/15/19 Range/Units 12:51 12:51 12:48 WBC 6.3 (4.0-10.5) K/mm3 RBC 4.61 (4.1-5.6) M/mm3 Hgb 14.1 (12.5-18.0) gm/dl Hct 43.2 (42-50) % MCV 93.7 (78-100) fl MCH 30.6 (26-32) pg MCHC 32.6 (32-36) g/dl RDW 12.6 (11.5-14.0) % Plt Count 191 (150-450) K/mm3 MPV 9.9 H (6-9.5) fl Gran % 46.9 (36.0-66.0) % Eos # (Auto) 0.09 (0-0.5) Absolute Lymphs (auto) 2.25 (1.0-4.6) Absolute Monos (auto) 0.98 (0.0-1.3) Lymphocytes % 35.7 (24.0-44.0) % Monocytes % 15.5 H (0.0-12.0) % Eosinophils % 1.4 (0.00-5.0) % Basophils % 0.5 (0.0-0.4) % Absolute Granulocytes 2.96 (1.4-6.9) Basophils # 0.03 (0-0.4) PT (8.83-12.87) SECONDS INR (0.8-3.0) APTT (24.1-36.1) SECONDS Sodium 143 (137-145) mmol/L Potassium 4.0 (3.5-5.1) mmol/L Chloride 107 (98-107) mmol/L Carbon Dioxide 25 (22-30) mmol/L Anion Gap 14.7 (5-15) MEQ/L BUN 9 (9-20) mg/dL Creatinine 0.76 (0.66-1.25) mg/dL Estimated GFR > 60.0 ML/MIN Glucose 163 H (74-106) mg/dL Lactic Acid 1.1 (0.4-2.0) Calcium 9.4 (8.4-10.2) mg/dL Total Bilirubin 0.60 (0.2-1.3) mg/dL AST 43 (17-59) U/L ALT 32 (0-50) U/L Alkaline Phosphatase 55 (38-126) U/L Creatine Kinase 43 L (55-170) U/L NT-Pro-B Natriuret Pep 85.7 (0-900) pg/mL Serum Total Protein 7.5 (6.3-8.2) g/dL Albumin 4.1 (3.5-5.0) g/dL TSH 3rd Generation (0.47-4.68) mIU/L Urine Color (YELLOW) Urine Appearance (CLEAR) Urine pH (5-6) Ur Specific [place] (1.005-1.025) Urine Protein (Negative) Urine Ketones (NEGATIVE) Urine Blood (0-5) [place]/ul Urine Nitrite (NEGATIVE) Urine Bilirubin (NEGATIVE) Urine Urobilinogen (0-1) mg/dL Ur Leukocyte Esterase (NEGATIVE) Urine WBC (Auto) (0-5) /HPF Urine RBC (Auto) (0-2) /HPF U Epithel Cells (Auto) (FEW) /HPF Urine Bacteria (Auto) (NEGATIVE) /HPF Urine Mucus (Auto) (NEGATIVE) /HPF Urine Culture Reflexed (NO) Urine Glucose (NEGATIVE) mg/dL - Progress Progress: unchanged, improved Progress Note: 03/15/19 15:24 Patient denies any fever, chills, worsening swelling or leg pain to the right lower leg since being in the emergency department. Patient is confirmed he is taking Eliquis twice daily for treatment of his DVT/ PE from last visit. Counseled pt/family regarding: lab results, diagnosis, need for follow-up, rad results - Departure Departure Disposition: Home Clinical Impression: Swelling of right lower extremity, Low TSH level, Essential hypertension Deep venous thrombosis Qualifiers: DVT location: lower extremity Affected thrombotic vein of extremity: popliteal Chronicity: chronic Laterality: right Qualified Code(s): I82.531 - Chronic embolism and thrombosis of right popliteal vein Fever Qualifiers: Fever type: unspecified Qualified Code(s): R50.9 - Fever, unspecified Condition: Good Critical Care Time: No Referrals: ENRICO QUIJANO [Primary Care Provider] - 03/15/19 Instructions: Dependent Edema (DC), Fever of Unknown Origin, Hyperthyroidism ( Overactive Thyroid) (DC) Additional Instructions: Continue your home medications. Follow-up your elevated thyroid test and your leg swelling with your provider on 03/16/2019. Your fever did not have a source found today on your examination, labwork or urinalysis. Your fever you experienced yesterday may be due to an overactive thyroid, which needs confirmation by other testing. return to the emergency department if any worsening leg swelling, leg pain, worsening redness to the leg, fever greater than 101, new chest pain, new coughing of blood, and the pain on breathing, or any other concerning signs or symptoms that were not present at today's emergency department visit for immediate reevaluation in the emergency department.
[2019-03-15 12:53] LABS: BASOPHIL % 0.5 % (0.0-0.4); Basophil (Absolute #) 0.03 (0-0.4); Eosinophil % 1.4 % (0.00-5.0); Eosinophil (Absolute #) 0.09 (0-0.5); Granulocyte Absolute (ANC) 2.96 (1.4-6.9); Granulocytes % 46.9 % (36.0-66.0); Hematocrit 43.2 % (42-50); Hemoglobin 14.1 gm/dl (12.5-18.0); Lymphocyte (Absolute #) 2.25 (1.0-4.6); Lymphocytes % 35.7 % (24.0-44.0); Mean Cell Volume 93.7 fl (78-100); Mean Corpuscular Hemoglobin 30.6 pg (26-32); Mean Corpuscular Hgb Concent. 32.6 g/dl (32-36); Mean Platelet Volume 9.9 fl (6-9.5); Monocyte (Absolute #) 0.98 (0.0-1.3); Monocytes % 15.5 % (0.0-12.0); Platelet Count 191 K/mm3 (150-450); Red Blood Count 4.61 M/mm3 (4.1-5.6); Red Cell Distribution Width 12.6 % (11.5-14.0); White Blood Count 6.3 K/mm3 (4.0-10.5)
[2019-03-15] MEDS ORDERED: Sodium Chloride 0.9% 1000 ML 1,000 ML ONE (12:53)
[2019-03-15 13:00] LABS: INR 1.33 (0.8-3.0); PROTIME 15.1 SECONDS (8.83-12.87)
[2019-03-15 13:03] LABS: PTT 35.5 SECONDS (24.1-36.1)
[2019-03-15 13:14] LABS: ALBUMIN 4.1 g/dL (3.5-5.0); ALKALINE PHOSPHATASE 55 U/L (38-126); ANION GAP 14.7 MEQ/L (5-15); BLOOD UREA NITROGEN 9 mg/dL (9-20); CHLORIDE 107 mmol/L (98-107); CK-Creatinine Phosphokinase 43 U/L (55-170); Calcium 9.4 mg/dL (8.4-10.2); Carbon Dioxide 25 mmol/L (22-30); Creatinine 1 0.76 mg/dL (0.66-1.25); Glucose 163 mg/dL (74-106); NT PRO BNP 85.7 pg/mL (0-900); SGOT/AST 43 U/L (17-59); SGPT/ALT 32 U/L (0-50); SODIUM 143 mmol/L (137-145); Total Protein 7.5 g/dL (6.3-8.2)
--- NOTE | 2019-03-15 13:43 | XRAY ---
Indication: Worsening right lower leg swelling. Two-dimensional sonogram and color Doppler imaging of the major venous vessels of the right leg was performed. Comparison: February 12, 2019. Previous occluding DVT in the distal femoral, popliteal, and posterior tibial veins now appear nonoccluding. No thrombus in the remaining common femoral, deep femoral, and greater saphenous veins which demonstrate normal compressibility and normal venous waveforms. Impression: Nonoccluding DVT in the distal femoral, popliteal, and posterior tibial veins.
[2019-03-15 15:13] LABS: Appearance CLEAR (CLEAR); Bilirubin NEGATIVE (NEGATIVE); Blood NEGATIVE Ery/ul (0-5); Glucose NEGATIVE (NEGATIVE); Ketones NEGATIVE (NEGATIVE); Leukocyte Esterase NEGATIVE (NEGATIVE); Mucus SLIGHT /HPF (NEGATIVE); Nitrite NEGATIVE (NEGATIVE); Protein,Urine Dip NEGATIVE (Negative); Specific Gravity 1.021 (1.005-1.025); Urobilinogen NEGATIVE mg/dL (0-1)
[2019-03-15 15:18] VITALS: BP 133/91; PULSE 72; O2SAT 96
== END 2019-03-15 15:33 | disposition home or self-care (01) ==
LOC: ED 12:28
DX: M79.89 Other specified soft tissue disorders (principal); R94.6 Abnormal results of thyroid function studies; I10 Essential (primary) hypertension; I82.531 Chronic embolism and thrombosis of right popliteal vein; R50.9 Fever, unspecified; E05.90 Thyrotoxicosis, unspecified without thyrotoxic crisis or storm
CPT/HCPCS: 36000; 36415; 80053; 81001; 82550; 83605; 83880; 84443; 85025; 85610; 85730; 93971; 96360; 99284

== ENCOUNTER 2020-06-16 09:09 | Day surgery (SDC) | payer BC ==
[~2020-06-16 09:09] MED LIST changes: -DIPRIVAN 200 MG/20 ML IV ONE; +Lactated Ringers 1,000 ML IV ONE; -Versed 2 MG/2 ML Injection IV ONE
--- NOTE | 2020-06-16 09:26 | HP ---
DATE OF SURGERY: 06/16/2020 HISTORY OF PRESENT ILLNESS: The patient is a 59 year old with no bloody stools, no change in bowel movements and no pain. Family history is negative for colon cancer. He has past history of some polyps in the past. PAST MEDICAL HISTORY: Hypertension. History of blood clots in the past. Hyperlipidemia. Gout. PAST SURGICAL HISTORY: Endoscopy in the past. Ankle surgery. Knee replacement. Shoulder surgery in the past. MEDICATIONS: Eliquis, Lisinopril, hydrochlorothiazide, Crestor, amlodipine, allopurinol. ALLERGIES: NKDA. FAMILY HISTORY: Heart disease. SOCIAL HISTORY: Chews [place]. He does drink some alcohol denies abuse. REVIEW OF SYSTEMS: Fourteen systems reviewed. No chest pain or palpitations. Other systems negative or noncontributory as above and per preadmission questionnaire. PHYSICAL EXAMINATION: GENERAL: No acute distress. HEENT: Sclerae nonicteric. NECK: No JVD. CHEST: Equal excursion, nonlabored breathing. CVS: Regular rate and rhythm. ABDOMEN: Soft. No peritoneal signs. EXTREMITIES: No significant edema. NEURO: Alert, oriented, moving extremities symmetrically. No gross motor deficits noted. RECTAL: Deferred timed to endoscopy exam. PSYCH: Appropriate mood and affect. SKIN: Dry, intact. IMPRESSION: History of polyps. He is in need of follow up screening colonoscopy. He will need to hold his blood thinners preoperatively. He was shown the risk sheet and explained the procedure in detail but not limited to bleeding or infection, risk of bowel injury or perforation, risk of missed or nondiagnosis or incomplete exam possibly requiring barium enema, other studies or procedures, general risk of anesthesia or sedation, risk of bowel prep but not limited to, will proceed with outpatient colonoscopy under MAC anesthesia for history of polyps.
[2020-06-16] MEDS ORDERED: DIPRIVAN 200 MG/20 ML IV ONE ×2 (11:45→12:15)
[2020-06-16 13:20] VITALS: O2SAT 99
[2020-06-16 13:21] VITALS: BP 145/57; PULSE 72
--- NOTE | 2020-06-17 09:01 | OP ---
SURGERY DATE/TIME: 06/16/2020 1200 PREOPERATIVE DIAGNOSIS: History of polyps. POSTOPERATIVE DIAGNOSES: 1) Polyps transverse colon. 2) Diverticulosis. 3) Fair bowel prep. 4) Small internal hemorrhoids. 5) ASA Class III. 6) Withdrawal time eight minutes. 7) Appendiceal orifice and ileocecal valve photo documented. PROCEDURES: 1) Colonoscopy to cecum with hot snare polypectomy transverse colon polyp approximately 4 mm. 2) Hot biopsy of second 2.5 mm adjacent polyp removed with hot biopsy forceps. SURGEON: Dr. Nir Mcknight. ANESTHESIA: MAC. ESTIMATED BLOOD LOSS: Minimal. INDICATIONS: As noted above. Risks and benefits explained in detail but not limited to and consent obtained. DESCRIPTION OF PROCEDURE AND FINDINGS: The patient is taken to the operating room. MAC anesthesia introduced. After official time out and no disagreement with planned procedure, digital rectal exam did not reveal any rectal masses. He did have some small internal hemorrhoids. Video colonoscope inserted and passed up through the slightly tortuous sigmoid, descending, transverse and ascending colon around to the cecum. Appendiceal orifice and valve area well visualized. Photo documented. Palpation in right lower quadrant confirmed the location. Prep over all was fair. There was a little of liquidy stool throughout the colon just slightly limiting the exam for very tiny lesions. ASA Class III. The scope slowly and carefully withdrawn over the next eight minutes stopping in the transverse colon and removing a pedunculated polyp with the snare. It was about 4 mm in size removed with hot snare polypectomy brief bursts of cautery. Good hemostasis noted. There was a small adjacent polyp about 2.5 mm in size whether hyperplastic or early adenomatous polyp was removed with hot biopsy forceps with brief bursts of cautery. Good hemostasis noted. Otherwise there were no signs of any other large polyps, masses or obstructing lesions. Scope was withdrawn. He had some mild diverticulosis in the left colon, had some small internal hemorrhoids. Otherwise there were no signs of any larger polyps, masses or obstructing lesions. The patient tolerated the procedure well. Findings discussed with the family over the phone. I will see the patient back in the office next week to go over the results.
== END 2020-06-16 13:15 | disposition home or self-care (01) ==
LOC: SDC 09:09
PROVIDERS: ATTEND Surgery
DX: Z09 Encounter for follow-up examination after completed treatment for conditions other than malignant neoplasm (principal); D12.3 Benign neoplasm of transverse colon; K57.30 Diverticulosis of large intestine without perforation or abscess without bleeding; K64.8 Other hemorrhoids
CPT/HCPCS: J2704

== ENCOUNTER 2022-03-15 08:14 | Day surgery (SDC) | payer BC ==
[2022-03-15] MEDS ORDERED: Lactated Ringers 1,000 ML IV SCH (08:30)
[2022-03-15] MEDS ORDERED: Lactated Ringers 1,000 ML IV ONE (08:52)
[2022-03-15] MEDS ORDERED: DIPRIVAN 200 MG/20 ML IV ONE ×3 (11:08→11:26)
[2022-03-15 12:03] VITALS: BP 128/73; PULSE 65; O2SAT 96
--- NOTE | 2022-03-16 08:06 | OP ---
SURGERY DATE/TIME: 03/15/2022 1102 PREOPERATIVE DIAGNOSES: 1) Prior history of polyps. 2) History of CT scan showing some thickening of descending colon. 3) History of diverticulosis in the past. POSTOPERATIVE DIAGNOSES: 1) Fair bowel prep. 2) ASA Class II. 3) Withdrawal time approximately 12 minutes. 4) Small polyps descending colon and sigmoid colon. 5) Diverticulosis left colon. PROCEDURES: 1) Colonoscopy to cecum with hot snare polypectomy of descending colon small polyp x1. 2) Hot biopsy polypectomy of two additional descending colon polyps. 3) Hot biopsy polypectomy of one sigmoid colon polyp. 4) Random cold biopsies colon to evaluate for microscopic colitis. SURGEON: Dr. Nir Mcknight. ANESTHESIA: MAC. ESTIMATED BLOOD LOSS: Minimal. INDICATIONS: As noted above. Risks and benefits explained in detail but not limited to and consent obtained. DESCRIPTION OF PROCEDURE AND FINDINGS: The patient is taken to the endoscopy room. MAC anesthesia induced. After official time out and no disagreement with planned procedure, digital rectal exam did not reveal any rectal masses. Prostate palpated and seemed to be fairly smooth. Video colonoscope was carefully inserted and passed up through the slightly tortuous sigmoid, descending, transverse and ascending colon. With the external pressure the scope was able to be passed to the cecum. Appendiceal orifice and valve well visualized and photo documented. Tip of the terminal ileum was grossly unremarkable. The scope was then carefully withdrawn over the next 12 minutes. Prep overall was fair. There were no signs of any large polyps, masses or obstructing lesions. The scope is pulled back. There was some diverticulosis in the left colon, descending sigmoid. There did not appear to be any obvious masses. There were two small polyps about 2.5 to 3 mm in size removed with hot biopsy polypectomy brief bursts of cautery. One was removed with hot snare polypectomy as it was slightly larger about 3 mm in size. Again, there was some diverticula in the descending and sigmoid colon. Because there was no obvious mass whether CT showed some thickening, the patient did have some diverticulosis in this area. Some random cold biopsies of mucosa were taken to evaluate for any microscopic colitis. Good hemostasis noted. Scope pulled back to the sigmoid colon. Another small early polyp versus hyperplastic lesion removed with hot biopsy forceps with brief bursts of cautery. Good hemostasis noted. The patient tolerated the procedure well. Findings discussed with the family out in the waiting area. No obvious mass or obstructing lesion noted.
== END 2022-03-15 12:10 | disposition home or self-care (01) ==
LOC: SDC 08:14
PROVIDERS: ATTEND Surgery
DX: Z09 Encounter for follow-up examination after completed treatment for conditions other than malignant neoplasm (principal); Z86.010 Personal history of colon polyps; R93.3 Abnormal findings on diagnostic imaging of other parts of digestive tract; Z87.19 Personal history of other diseases of the digestive system; K57.30 Diverticulosis of large intestine without perforation or abscess without bleeding; D12.4 Benign neoplasm of descending colon; D12.5 Benign neoplasm of sigmoid colon
CPT/HCPCS: J2704

== ENCOUNTER 2022-10-18 20:07 | Emergency (ER) | payer BC ==
--- NOTE | 2022-10-18 20:19 | ERPHSYRPT ---
- History of Present Illness Time Seen by Provider: 10/18/22 20:19 Source: patient Exam Limitations: no limitations Physician History: This is a 62-year-old white male who has a history of gout, gastroesophageal reflux disease and hypertension and has a history of DVT 2 years ago and has been on Xarelto. He is taking his medication as prescribed. However in the last 2 days he has noticed increasing pain and swelling in his right lower extremity. Specifically below the knee calf. He also had an episode where he had some shortness of breath and chest pain that was brief but he was concerned earlier today. He no longer has shortness of breath or chest pain. He has not had a fever or cough. He said no hemoptysis. He has no abdominal pain. Occurred: days ago Quality: aching (Right calf), other (Right calf and below the knee) Severity of Pain-Max: mild Severity of Pain-Current: mild Lower Extremities Pain: leg: right (Below the knee and calf) Modifying Factors: Improves With: nothing Associated Symptoms: none Allergies/Adverse Reactions: No Known Drug Allergies Allergy (Verified 03/15/22 08:24) Home Medications: allopurinoL [Zyloprim] 100 mg PO HS 02/12/19 [History] Hydrochlorothiazide 25 mg [hydroDIURIL 25 MG] 25 mg PO DAILY 06/04/20 [History] lisinopriL [Lisinopril] 40 mg PO DAILY 06/04/20 [History] Amlodipine Besylate 5 mg [Norvasc 5 mg] 5 mg PO DAILY 03/15/22 [History] Montelukast Sodium 10 mg [Singulair 10 MG] 10 mg PO DAILY 03/15/22 [History] Omeprazole 20 mg PO DAILY 03/15/22 [History] Tamsulosin HCl 0.4 mg [Flomax 0.4 MG] 0.4 mg PO HS 03/15/22 [History] Ascorbic Acid [Vitamin C] 1,000 mg PO BID 10/18/22 [History] Hx Tetanus, Diphtheria Vaccination/Date Given: Yes Hx Influenza Vaccination/Date Given: Yes Hx Pneumococcal Vaccination/Date Given: Yes Travel Risk - International Travel Have you traveled outside of the country in past 3 weeks: No - Coronavirus Screening Are you exhibiting any of the following symptoms?: No Close contact with a COVID-19 positive Pt in past 14-21 Days: No - Review of Systems Constitutional: No Symptoms Eyes: No Symptoms Ears, Nose, & Throat: No Symptoms Respiratory: No Symptoms Cardiac: No Symptoms Abdominal/Gastrointestinal: No Symptoms Genitourinary Symptoms: No Symptoms Musculoskeletal: Other (Pain and swelling right lower leg/calf) Skin: No Symptoms Neurological: No Symptoms Psychological: No Symptoms Endocrine: No Symptoms Hematologic/Lymphatic: No Symptoms Immunological/Allergic: No Symptoms All Other Systems: Reviewed and Negative - Past Medical History Pertinent Past Medical History: Yes Neurological History: No Pertinent History ENT History: No Pertinent History Cardiac History: Hypertension Respiratory History: Asthma, CHF, Pneumonia, Pulmonary Embolism Endocrine Medical History: No Pertinent History Musculoskeletal History: Fractures, Osteoarthritis, Other GI Medical History: Diverticulosis, GERD, Polyps History: No Pertinent History Psycho-Social History: No Pertinent History Male Reproductive Disorders: No Pertinent History Other Medical History: LEFT KNEE REPLACEMENT, LEFT KNEE ARTHROSCOPY 07/14, BI LATERAL SHOULDER ARTHROSCOPY FOR BONE SPURS, RUPTURED BURSE, AND TENDON REPAIR (LEFT BICEPS) 2003,. ORIF LEFT FOOT 1989 - Past Surgical History Past Surgical History: Yes Neuro Surgical History: No Pertinent History Cardiac: No Pertinent History Respiratory: No Pertinent History Gastrointestinal: No Pertinent History Genitourinary: No Pertinent History Musculoskeletal: Orthopedic Surgery, Other Male Surgical History: No Pertinent History Other Surgical History: pt states he has had rotator cuff repair on both shoulders, left ankle surgically repaired that still has screws in it. left knee replacement, Pt has had cancerous moles removed as well. - Social History Smoking Status: Former smoker Exposure to second hand smoke: No Drug Use: none Patient Lives Alone: No - Nursing Vital Signs Nursing Vital Signs: Initial Vital Signs Temperature 99.0 F 10/18/22 20:16 Pulse Rate 82 10/18/22 20:16 Respiratory Rate 18 10/18/22 20:16 Blood Pressure 116/72 10/18/22 20:16 O2 Sat by Pulse Oximetry 96 10/18/22 20:16 Pain Scale Pain Intensity 0 - Physical Exam General Appearance: no apparent distress, alert, anxiety Eyes, Ears, Nose, Throat Exam: normal ENT inspection, moist mucous membranes Neck Exam: normal inspection, non-tender, supple, full range of motion Cardiovascular/Respiratory Exam: chest non-tender, no respiratory distress Gastrointestinal/Abdominal Exam: non-tender Back Exam: normal inspection, normal range of motion, No CVA tenderness, No vertebral tenderness Hips Exam: bilateral: non-tender, normal inspection, normal range of motion, no evidence of injury Legs Exam: left leg: non-tender, bilateral leg: normal inspection, normal range of motion Knees Exam: right knee: soft tissue tenderness (Right calf), swelling (Below the knee), bilateral knee: non-tender, normal inspection, normal range of motion, no evidence of injury Ankle Exam: right ankle: swelling (Right ankle and right calf), left ankle: normal inspection, bilateral ankle: non-tender, normal range of motion, no evidence of injury Foot Exam: bilateral foot: non-tender, normal inspection, normal range of motion, no evidence of injury Neuro/Tendon Exam: normal sensation, normal motor functions, normal tendon functions, responds to pain, no evidence tendon injury Mental Status Exam: alert, oriented x 3, cooperative Skin Exam: normal color, warm, dry SpO2 Interpretation: normal O2 Delivery: Room Air - Course Nursing assessment & vital signs reviewed: Yes EKG Interpreted by Me: RATE (81), Sinus Rhythm, NORMAL AXIS, NORMAL INTERVALS, NORMAL QRS, NORMAL ST-T, Other (No acute ischemic changes on today's twelve-lead EKG.) Ordered Tests: Active Orders 24 hr Category Date Time Status Kettle Chipper STAT Care 10/18/22 21:04 Active EKG-ER Only STAT Care 10/18/22 21:04 Active IV Insertion STAT Care 10/18/22 21:04 Active Pulse Oximetry (ED) STAT Care 10/18/22 21:04 Active CHEST WITH CONTRAST [CT] Stat Exams 10/18/22 21:37 Completed VENOUS UNILAT/LIMITED EXTREMIT [US] Stat Exams 10/18/22 21:38 Taken CBC W DIFF Stat Lab 10/18/22 21:00 Completed CMP Stat Lab 10/18/22 21:00 Completed D-DIMER QUANTITATIVE Stat Lab 10/18/22 21:00 Completed TROPONIN Q4H Lab 10/18/22 21:00 Completed TROPONIN Q4H Lab 10/19/22 01:15 Ordered TROPONIN Q4H Lab 10/19/22 05:15 Ordered Medication Summary Discontinued Medications Generic Name Dose Route Start Last Admin Trade Name Freq PRN Reason Stop Dose Admin Enoxaparin Sodium 120 mg 10/18/22 22:42 10/18/22 22:50 Enoxaparin Sodium 120 Mg/0.8 Ml Syringe SQ 10/18/22 22:43 120 mg STAT STA Administration Enoxaparin Sodium Confirm 10/18/22 22:50 Enoxaparin Sodium 120 Mg/0.8 Ml Syringe Administered 10/18/22 22:51 Dose 120 mg SQ .STK-MED ONE Sodium Chloride 500 mls @ 500 mls/hr 10/18/22 21:37 10/18/22 21:41 Sodium Chloride 0.9% 500 Ml IV 10/18/22 22:36 500 mls/hr .Q1H ONE Administration Sodium Chloride Confirm 10/18/22 21:40 Sodium Chloride 0.9% 500 Ml Administered 10/18/22 21:41 Dose 500 mls @ ud IV .STK-MED ONE Lab/Rad Data: Laboratory Result Diagrams 10/18/22 21:00 10/18/22 21:00 Laboratory Results 10/18/22 10/18/22 10/18/22 Range/Units 21:00 21:00 21:00 WBC 8.0 (4.0-10.5) x10^3/uL RBC 4.39 (4.1-5.6) x10^6/uL Hgb 13.3 (12.5-18.0) g/dL Hct 41.2 L (42-50) % MCV 93.8 (78-100) fL MCH 30.3 (26-32) pg MCHC 32.3 (32-36) g/dL RDW 12.5 (11.5-14.0) % Plt Count 217 (150-450) x10^3/uL MPV 10.1 (7.5-11.0) fL Gran % 46.7 (36.0-66.0) % Immature Gran % (Auto) 0.3 (0.00-0.4) % Nucleat RBC Rel Count 0.0 (0.00-0.1) % Eos # (Auto) 0.04 (0-0.5) x10^3/uL Immature Gran # (Auto) 0.02 (0.00-0.03) x10^3u/L Absolute Lymphs (auto) 2.92 (1.0-4.6) x10^3/uL Absolute Monos (auto) 1.21 (0.0-1.3) x10^3/uL Absolute Nucleated RBC 0.00 (0.00-0.01) x10^3u/L Lymphocytes % 36.5 (24.0-44.0) % Monocytes % 15.1 H (0.0-12.0) % Eosinophils % 0.5 (0.00-5.0) % Basophils % 0.9 (0.0-0.4) % Absolute Granulocytes 3.73 (1.4-6.9) x10^3/uL Basophils # 0.07 (0-0.4) x10^3/uL D-Dimer (0.0-0.50) mg/L Sodium 142 (137-145) mmol/L Potassium 3.4 L (3.5-5.1) mmol/L Chloride 103 (98-107) mmol/L Carbon Dioxide 26 (22-30) mmol/L Anion Gap 16.3 H (5-15) MEQ/L BUN 11 (9-20) mg/dL Creatinine 0.70 (0.66-1.25) mg/dL Estimated GFR > 60.0 ML/MIN Glucose 146 H (74-106) mg/dL Calcium 8.7 (8.4-10.2) mg/dL Total Bilirubin 0.40 (0.2-1.3) mg/dL AST 33 (17-59) U/L ALT 19 (0-50) U/L Alkaline Phosphatase 56 (38-126) U/L Troponin I < 0.012 (0.000-0.034) ng/mL Serum Total Protein 7.5 (6.3-8.2) g/dL Albumin 4.0 (3.5-5.0) g/dL 10/18/22 Range/Units 21:00 WBC (4.0-10.5) x10^3/uL RBC (4.1-5.6) x10^6/uL Hgb (12.5-18.0) g/dL Hct (42-50) % MCV (78-100) fL MCH (26-32) pg MCHC (32-36) g/dL RDW (11.5-14.0) % Plt Count (150-450) x10^3/uL MPV (7.5-11.0) fL Gran % (36.0-66.0) % Immature Gran % (Auto) (0.00-0.4) % Nucleat RBC Rel Count (0.00-0.1) % Eos # (Auto) (0-0.5) x10^3/uL Immature Gran # (Auto) (0.00-0.03) x10^3u/L Absolute Lymphs (auto) (1.0-4.6) x10^3/uL Absolute Monos (auto) (0.0-1.3) x10^3/uL Absolute Nucleated RBC (0.00-0.01) x10^3u/L Lymphocytes % (24.0-44.0) % Monocytes % (0.0-12.0) % Eosinophils % (0.00-5.0) % Basophils % (0.0-0.4) % Absolute Granulocytes (1.4-6.9) x10^3/uL Basophils # (0-0.4) x10^3/uL D-Dimer 0.65 H* (0.0-0.50) mg/L Sodium (137-145) mmol/L Potassium (3.5-5.1) mmol/L Chloride (98-107) mmol/L Carbon Dioxide (22-30) mmol/L Anion Gap (5-15) MEQ/L BUN (9-20) mg/dL Creatinine (0.66-1.25) mg/dL Estimated GFR ML/MIN Glucose (74-106) mg/dL Calcium (8.4-10.2) mg/dL Total Bilirubin (0.2-1.3) mg/dL AST (17-59) U/L ALT (0-50) U/L Alkaline Phosphatase (38-126) U/L Troponin I (0.000-0.034) ng/mL Serum Total Protein (6.3-8.2) g/dL Albumin (3.5-5.0) g/dL - Progress Progress: re-examined Progress Note: 10/18/22 22:42 Venous ultrasound report given to me by the radiology/integration solution architect. She states that there is a nonoccluding popliteal vein DVT. 10/19/22 00:16 CT of the chest with contrast shows no evidence of pulmonary emboli. There is no acute cardiopulmonary process. This patient's medical issue is 1 of moderate complexity. The level of complexity and the work-up performed was based on the review of the patient's past medical history, medication list, drug allergy list, history of present illness and physical findings on examination. The work-up performed is placement of an intravenous line, D-dimer, troponin level, CBC, CMP, venous ultrasound of right lower extremity, CT of the chest with contrast. The patient is already on Xarelto. I reviewed reviewed all the findings and the patient had an elevated D-dimer level. I provided the patient with an additional anticoagulation medication, that he has, a subcutaneous dose of Lovenox. Patient is to continue his Xarelto as prescribed. Patient is to call his prima care provider tomorrow at 8:30 AM to let them know the work-up and treatment we did this evening in the emergency department. They will decide on further management and type and amounts of anticoagulation therapy. Counseled pt/family regarding: lab results, diagnosis, need for follow-up, rad results Medical Desision Making - Independent Historian Additional History obtained from: Spouse - Discussion of managment Agreed on:: Treatment plan, need for follow-up - Diagnostic Testing Diagnostic test were ordered, analyzed, and reviewed by me: Yes Radiological Interpretation: Reviewed by me, Teleradiologist Report - Risk of complications Low Risk: Low risk of morbidity from additional dx testing or treatment - Departure Departure Disposition: Home Clinical Impression: Right leg DVT Condition: Stable Critical Care Time: No Referrals: ENRICO QUIJANO NP [Primary Care Provider] - Follow up/PCP as directed Additional Instructions: Drink plenty fluids. Take your medication as prescribed. Call your primary care provider this morning, 10/19/2022, at 8:30 AM and discuss further instructio ns and management on your anticoagulation therapy.
[2022-10-18 21:10] LABS: Absolute Neutrophil Ct (ANC) 3.73 x10^3/uL (1.4-6.9); BASOPHIL % 0.9 % (0.0-0.4); Basophil (Absolute #) 0.07 x10^3/uL (0-0.4); Eosinophil % 0.5 % (0.00-5.0); Eosinophil (Absolute #) 0.04 x10^3/uL (0-0.5); Hematocrit 41.2 % (42-50); Hemoglobin 13.3 g/dL (12.5-18.0); IMMATURE GRAN # 0.02 x10^3u/L (0.00-0.03); IMMATURE GRAN % 0.3 % (0.00-0.4); Lymphocyte (Absolute #) 2.92 x10^3/uL (1.0-4.6); Lymphocytes % 36.5 % (24.0-44.0); Mean Cell Volume 93.8 fL (78-100); Mean Corpuscular Hemoglobin 30.3 pg (26-32); Mean Corpuscular Hgb Concent. 32.3 g/dL (32-36); Mean Platelet Volume 10.1 fL (7.5-11.0); Monocyte (Absolute #) 1.21 x10^3/uL (0.0-1.3); Monocytes % 15.1 % (0.0-12.0); Neutrophil % 46.7 % (36.0-66.0); Platelet Count 217 x10^3/uL (150-450); Red Blood Count 4.39 x10^6/uL (4.1-5.6); Red Cell Distribution Width 12.5 % (11.5-14.0)
[2022-10-18 21:25] LABS: ALKALINE PHOSPHATASE 56 U/L (38-126); ANION GAP 16.3 MEQ/L (5-15); BLOOD UREA NITROGEN 11 mg/dL (9-20); CHLORIDE 103 mmol/L (98-107); Calcium 8.7 mg/dL (8.4-10.2); Carbon Dioxide 26 mmol/L (22-30); EST GLOMERULAR FILTRATION RATE > 60.0 ML/MIN; Glucose 146 mg/dL (74-106); Potassium 3.4 mmol/L (3.5-5.1); SGOT/AST 33 U/L (17-59); SGPT/ALT 19 U/L (0-50); SODIUM 142 mmol/L (137-145); Total Protein 7.5 g/dL (6.3-8.2)
[2022-10-18] MEDS ORDERED: Sodium Chloride 0.9% 500 ML 500 ML IV ONE ×2 (21:37→21:40)
[2022-10-18] MEDS ORDERED: ENOXAPARIN SODIUM SQ STA (22:42)
[2022-10-18] MEDS ORDERED: ENOXAPARIN SODIUM SQ ONE (22:50)
--- NOTE | 2022-10-18 23:51 | XRAY ---
CLINICAL HISTORY:Chest pain, shortness of air, elevated D-dimer. Evaluation for pulmonary embolism. As per patient, previous history of embolism; COMPARISON:CT dated 06/01/2022; TECHNIQUES:CT chest was performed with contrast in the axial plane and sagittal and coronal reconstructions were also obtained; FINDINGS: The main pulmonary trunk, right, and left pulmonary arteries with the ascending and descending branches are normal. The segmental branches are normal in caliber and show good contrast opacification with no evidence of filling defect/thrombosis. No evidence of any focal filling defect is seen. The aortic arch and visualized ascending aorta and descending aorta are normal. Bilateral lung weller are normal in translucency and markings, except for thin subpleural fibroatelectatic bands on both sides. Few non-specific subcentimetric mediastinal nodes are noted. No evidence of pleural/pericardial effusion. The thoracic spine shows degenerative changes. Scanned upper abdomen reveals fatty infiltration in the liver. IMPRESSION: Unremarkable CT pulmonary angiography, no evidence of acute thromboembolism. No significant abnormality detected in bilateral lung weller. In contrast to the previous study dated 06/01/22, no significant interval changes are seen. Electronically Signed by: Marvel Ham MD. (10/18/2022 22:44:04 DIRECTOR LEARNING)
[2022-10-19 00:21] VITALS: BP 105/62; PULSE 78; O2SAT 97
--- NOTE | 2022-10-19 08:51 | XRAY ---
Indication: Pain and swelling. Elevated d-dimer. Two-dimensional sonogram and color Doppler imaging of the major venous vessels of the right leg performed. Comparison: March 15, 2019 Nonoccluding thrombi seen in the popliteal vein. No thrombus in the remaining deep venous vessels of the right leg including greater saphenous vein. Patent veins demonstrate normal compressibility and normal venous waveforms. Impression: Nonoccluding DVT popliteal vein. Comment: Preliminary report was given.
== END 2022-10-19 00:36 | disposition home or self-care (01) ==
LOC: ED 20:07
DX: I82.431 Acute embolism and thrombosis of right popliteal vein (principal); M79.661 Pain in right lower leg; I11.0 Hypertensive heart disease with heart failure; I50.9 Heart failure, unspecified; Z79.01 Long term (current) use of anticoagulants; Z79.899 Other long term (current) drug therapy; Z86.711 Personal history of pulmonary embolism
CPT/HCPCS: 36000; 36415; 71260; 80053; 84484; 85025; 85379; 93005; 93041; 93971; 94760; 96372; 99284; J1650

== ENCOUNTER 2024-05-04 09:16 | Emergency (ER) | payer OTHER ==
--- NOTE | 2024-05-04 09:18 | ERPHSYRPT ---
- History of Present Illness Time Seen by Provider: 05/04/24 09:18 Historian: patient, family Exam Limitations: no limitations Physician History: This is an obese 63-year-old white male patient of ui developer Dr. Goetz out of [facility] in [place] who presents to the emergency department with right side chest pain that began 2 days ago. It is sharp and stabbing. Patient has a history of pulmonary embolus in the past and is taking Xarelto. 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 Patient is not short of breath and his room air oxygenation saturation level on arrival to the emergency department is 99%. He arrives by private vehicle. He has not had a fever. He has no abdominal pain. Patient has a history of hypertension, gastroesophageal reflux disease, asthma/COPD, prostate issues, CHF Timing/Duration: day(s) (2) Activities at Onset: none Quality: sharpness, stabbing Location: other Chest Pain Radiation: no radiation (Right chest) Severity of Pain-Max: moderate Severity of Pain-Current: moderate Modifying Factors: Improves With: nothing Associated Symptoms: denies symptoms Prior Chest Pain/Cardiac Workup: cardiac cath, pulmonary embolism Nitro Today/Relief: no nitro taken today Aspirin Treatment Today: unknown Allergies/Adverse Reactions: No Known Drug Allergies Allergy (Verified 05/04/24 09:21) Home Medications: allopurinoL [Zyloprim] 100 mg PO HS 02/12/19 [History] Hydrochlorothiazide 25 mg [hydroDIURIL 25 MG] 25 mg PO DAILY 06/04/20 [History] lisinopriL [Lisinopril] 40 mg PO DAILY 06/04/20 [History] Amlodipine Besylate 5 mg [Norvasc 5 mg] 5 mg PO DAILY 03/15/22 [History] Montelukast Sodium 10 mg [Singulair 10 MG] 10 mg PO DAILY 03/15/22 [History] Omeprazole 20 mg PO DAILY 03/15/22 [History] Ferrous Sulfate 324 mg PO DAILY 05/04/24 [History] Hx Tetanus, Diphtheria Vaccination/Date Given: Yes Hx Influenza Vaccination/Date Given: Yes Hx Pneumococcal Vaccination/Date Given: Yes Travel Risk - International Travel Have you traveled outside of the country in past 3 weeks: No - Emerging Infectious Disease Are you exhibiting symptoms associated with any current EIDs: No - Review of Systems Constitutional: No Symptoms Eyes: No Symptoms Ears, Nose, & Throat: No Symptoms Respiratory: No Symptoms Cardiac: Chest Pain (Right side) Abdominal/Gastrointestinal: No Symptoms Genitourinary Symptoms: No Symptoms Musculoskeletal: No Symptoms Skin: No Symptoms Neurological: No Symptoms Psychological: No Symptoms Endocrine: No Symptoms Hematologic/Lymphatic: No Symptoms Immunological/Allergic: No Symptoms All Other Systems: Reviewed and Negative - Past Medical History Pertinent Past Medical History: Yes Neurological History: No Pertinent History ENT History: No Pertinent History Cardiac History: Hypertension Respiratory History: Asthma, CHF, Pneumonia, Pulmonary Embolism Endocrine Medical History: No Pertinent History Musculoskeletal History: Fractures, Osteoarthritis, Other GI Medical History: Diverticulosis, GERD, Polyps History: No Pertinent History Psycho-Social History: No Pertinent History Male Reproductive Disorders: No Pertinent History Other Medical History: LEFT KNEE REPLACEMENT, LEFT KNEE ARTHROSCOPY 07/14, BILATERAL SHOULDER ARTHROSCOPY FOR BONE SPURS, RUPTURED BURSE, AND TENDON REPAIR (LEFT BICEPS) 2003,. ORIF LEFT FOOT 1989 - Past Surgical History Past Surgical History: Yes Neuro Surgical History: No Pertinent History Cardiac: No Pertinent History Respiratory: No Pertinent History Gastrointestinal: No Pertinent History Genitourinary: No Pertinent History Musculoskeletal: Orthopedic Surgery, Other Male Surgical History: No Pertinent History Other Surgical History: pt states he has had rotator cuff repair on both shoulders, left ankle surgically repaired that still has screws in it. left knee replacement, Pt has had cancerous moles removed as well. - Social History Smoking Status: Former smoker Exposure to second hand smoke: No Drug Use: none Patient Lives Alone: No - Nursing Vital Signs Nursing Vital Signs: Initial Vital Signs Pulse Rate 80 05/04/24 09:18 Respiratory Rate 26 H 05/04/24 09:18 Blood Pressure 168/91 05/04/24 09:18 Pain Scale Pain Intensity 0 - Physical Exam General Appearance: no apparent distress, alert, anxiety, obese Eye Exam: PERRL/EOMI, eyes nml inspection Ears, Nose, Throat Exam: normal ENT inspection, moist mucous membranes Neck Exam: normal inspection, non-tender, supple, full range of motion Respiratory Exam: normal breath sounds, chest tenderness (Right side), lungs clear, airway intact, No respiratory distress Cardiovascular Exam: regular rate/rhythm, normal heart sounds, normal peripheral pulses Gastrointestinal/Abdomen Exam: soft, normal bowel sounds, No tenderness Rectal Exam: not done Back Exam: normal inspection, normal range of motion, No CVA tenderness, No vertebral tenderness Extremity Exam: normal inspection, normal range of motion, pelvis stable Neurologic Exam: alert, oriented x 3, cooperative, physician credentialing specialist II-XII nml as tested, nml cerebellar function, nml station & gait, sensation nml Skin Exam: normal color, warm, dry Lymphatic Exam: No adenopathy SpO2 Interpretation: normal O2 Delivery: Room Air - Course Nursing assessment & vital signs reviewed: Yes EKG Interpreted by Me: RATE (89), Sinus Rhythm, NORMAL AXIS, NORMAL INTERVALS, NORMAL QRS, Other (No acute ischemic changes on today's twelve-lead EKG. No significant change from comparison EKG dated 10/18/2022) Ordered Tests: Active Orders 24 hr Category Date Time Status Revenue Specialist STAT Care 05/04/24 09:28 Active EKG-ER Only STAT Care 05/04/24 09:27 Active IV Insertion STAT Care 05/04/24 09:27 Active Pulse Oximetry (ED) STAT Care 05/04/24 09:27 Active CHEST WITH CONTRAST [CT] Stat Exams 05/04/24 09:28 Completed CBC W DIFF Stat Lab 05/04/24 09:30 Completed CMP Stat Lab 05/04/24 09:30 Completed PROTIME WITH INR Stat Lab 05/04/24 10:00 Completed TROPONIN Q4H Lab 05/04/24 10:15 Completed TROPONIN Q4H Lab 05/04/24 13:30 Ordered TROPONIN Q4H Lab 05/04/24 17:30 Ordered UA W/RFX UR CULTURE Stat Lab 05/04/24 10:48 Completed Medication Summary Generic Name Dose Route Start Last Admin Trade Name Freq PRN Reason Stop Dose Admin Sodium Chloride 500 mls @ 100 mls/hr 05/04/24 09:30 05/04/24 09:37 Sodium Chloride 0.9% 500 Ml IV 06/03/24 09:29 100 mls/hr .Q5H DARRIAN Administration Discontinued Medications Generic Name Dose Route Start Last Admin Trade Name Freq PRN Reason Stop Dose Admin Aspirin 324 mg 05/04/24 09:27 05/04/24 09:38 Aspirin 81 Mg Tab.Chew PO 05/04/24 09:28 324 mg STAT ONE Administration Aspirin Confirm 05/04/24 09:36 Aspirin 81 Mg Tab.Chew Administered 05/04/24 09:37 Dose 324 mg .ROUTE .STK-MED ONE Morphine Sulfate 4 mg 05/04/24 09:27 05/04/24 09:37 Morphine Sulfate 4 Mg/Ml Injection IV 05/04/24 09:28 4 mg STAT ONE Administration Morphine Sulfate Confirm 05/04/24 09:36 Morphine Sulfate 4 Mg/Ml Injection Administered 05/04/24 09:37 Dose 4 mg .ROUTE .STK-MED ONE Ondansetron HCl 4 mg 05/04/24 09:27 05/04/24 09:37 Ondansetron Hcl 4 Mg/2 Ml Vial IV 05/04/24 09:28 4 mg STAT ONE Administration Ondansetron HCl Confirm 05/04/24 09:36 Ondansetron Hcl 4 Mg/2 Ml Vial Administered 05/04/24 09:37 Dose 4 mg .ROUTE .STK-MED ONE Lab/Rad Data: Laboratory Result Diagrams 05/04/24 09:30 05/04/24 09:30 Laboratory Results 05/04/24 05/04/24 05/04/24 Range/Units 10:48 10:15 10:00 WBC (4.23-9.07) x10^3/uL RBC (4.63-6.08) x10^6/uL Hgb (13.7-17.5) g/dL Hct (40.1-51.0) % MCV (79.0-92.2) fL MCH (25.7-32.2) pg MCHC (32.3-36.5) g/dL RDW (11.6-14.4) % Plt Count (163-337) x10^3/uL MPV (9.4-12.4) fL Gran % (34.0-67.9) % Immature Gran % (Auto) (0.001-0.429) % Nucleat RBC Rel Count (0.00-0.2) % Eos # (Auto) (0.04-0.54) x10^3/uL Immature Gran # (Auto) (0.001-0.031) x10^3u/L Absolute Lymphs (auto) (1.32-3.57) x10^3/uL Absolute Monos (auto) (0.30-0.82) x10^3/uL Absolute Nucleated RBC (0.00-0.012) x10^3u/L Lymphocytes % (21.8-53.1) % Monocytes % (5.3-12.2) % Eosinophils % (0.8-7.0) % Basophils % (0.2-1.2) % Absolute Granulocytes (1.78-5.38) x10^3/uL Basophils # (0.01-0.08) x10^3/uL PT 12.0 (9.4-12.5) SECONDS INR 1.11 (0.8-3.0) Sodium (135-145) mmol/L Potassium (3.5-5.1) mmol/L Chloride (98-107) mmol/L Carbon Dioxide (22-30) mmol/L Anion Gap (5-15) MEQ/L BUN (9-20) mg/dL Creatinine (0.66-1.25) mg/dL Estimated GFR ML/MIN Glucose (74-106) mg/dL Calcium (8.4-10.2) mg/dL Total Bilirubin (0.2-1.3) mg/dL AST (17-59) U/L ALT (0-50) U/L Alkaline Phosphatase (38-126) U/L Troponin I < 0.012 (0.000-0.033) ng/mL Serum Total Protein (6.3-8.2) g/dL Albumin (3.5-5.0) g/dL Urine Color Yellow (Yellow) Urine Appearance Clear (Clear) Urine pH 6.0 (4.6-8.0) Ur Specific Keavy <=1.005 (1.005-1.030) Urine Protein Negative (Negative) Urine Glucose (UA) Negative (Negative) mg/dL Urine Ketones Trace A (Negative) Urine Blood Trace (Negative) Urine Nitrite Negative (Negative) Urine Bilirubin Negative (Negative) Urine Urobilinogen 0.2 (0.2) mg/dL Ur Leukocyte Esterase Negative (Negative) U Hyaline Cast (Auto) NONE SEEN (0-2) /LPF Urine Microscopic RBC 0-2 (0-5) /HPF Urine Microscopic WBC 0-2 (0-5) /HPF Ur Epithelial Cells None Seen (None Seen) /HPF Urine Bacteria None Seen (None Seen) /HPF Urine Culture Reflexed NO (NO) Influenza Type A Ag (NEGATIVE) Influenza Type B Ag (NEGATIVE) RSV (PCR) (NEGATIVE) SARS-CoV-2 (PCR) (NEGATIVE) 05/04/24 05/04/24 05/04/24 Range/Units 09:30 09:30 09:30 WBC 5.4 (4.23-9.07) x10^3/uL RBC 4.35 L (4.63-6.08) x10^6/uL Hgb 14.2 (13.7-17.5) g/dL Hct 41.1 (40.1-51.0) % MCV 94.5 H (79.0-92.2) fL MCH 32.6 H (25.7-32.2) pg MCHC 34.5 (32.3-36.5) g/dL RDW 10.9 L (11.6-14.4) % Plt Count 166 (163-337) x10^3/uL MPV 10.0 (9.4-12.4) fL Gran % 38.4 (34.0-67.9) % Immature Gran % (Auto) 0.4 (0.001-0.429) % Nucleat RBC Rel Count 0.0 (0.00-0.2) % Eos # (Auto) 0.24 (0.04-0.54) x10^3/uL Immature Gran # (Auto) 0.02 (0.001-0.031) x10^3u/L Absolute Lymphs (auto) 2.35 (1.32-3.57) x10^3/uL Absolute Monos (auto) 0.66 (0.30-0.82) x10^3/uL Absolute Nucleated RBC 0.00 (0.00-0.012) x10^3u/L Lymphocytes % 43.6 (21.8-53.1) % Monocytes % 12.2 (5.3-12.2) % Eosinophils % 4.5 (0.8-7.0) % Basophils % 0.9 (0.2-1.2) % Absolute Granulocytes 2.07 (1.78-5.38) x10^3/uL Basophils # 0.05 (0.01-0.08) x10^3/uL PT (9.4-12.5) SECONDS INR (0.8-3.0) Sodium 135 (135-145) mmol/L Potassium 4.5 (3.5-5.1) mmol/L Chloride 102 (98-107) mmol/L Carbon Dioxide 22 (22-30) mmol/L Anion Gap 15.8 H (5-15) MEQ/L BUN 10 (9-20) mg/dL Creatinine 0.78 (0.66-1.25) mg/dL Estimated GFR 100.8 ML/MIN Glucose 123 H (74-106) mg/dL Calcium 9.0 (8.4-10.2) mg/dL Total Bilirubin 0.60 (0.2-1.3) mg/dL AST 64 H (17-59) U/L ALT 36 (0-50) U/L Alkaline Phosphatase 57 (38-126) U/L Troponin I (0.000-0.033) ng/mL Serum Total Protein 7.2 (6.3-8.2) g/dL Albumin 4.0 (3.5-5.0) g/dL Urine Color (Yellow) Urine Appearance (Clear) Urine pH (4.6-8.0) Ur Specific Keavy (1.005-1.030) Urine Protein (Negative) Urine Glucose (UA) (Negative) mg/dL Urine Ketones (Negative) Urine Blood (Negative) Urine Nitrite (Negative) Urine Bilirubin (Negative) Urine Urobilinogen (0.2) mg/dL Ur Leukocyte Esterase (Negative) U Hyaline Cast (Auto) (0-2) /LPF Urine Microscopic RBC (0-5) /HPF Urine Microscopic WBC (0-5) /HPF Ur Epithelial Cells (None Seen) /HPF Urine Bacteria (None Seen) /HPF Urine Culture Reflexed (NO) Influenza Type A Ag NEGATIVE (NEGATIVE) Influenza Type B Ag NEGATIVE (NEGATIVE) RSV (PCR) NEGATIVE (NEGATIVE) SARS-CoV-2 (PCR) NEGATIVE (NEGATIVE) - Progress Progress: re-examined Air Movement: good Progress Note: 05/04/24 09:39 My medical decision making and the assignment of moderate complexity to this patient's medical issue today is based on review of the patient's past medical history, review of the patient's medication list, reviewed patient drug allergy list, history present illness and physical findings on examination. The workup today includes placement of intravenous line, twelve-lead EKG, CBC, CMP, troponin level, viral swabs, CT scan of the chest with contrast. Differential diagnosis includes was not limited to pneumonia, recurrent pulmonary embolus, myocardial infarction, arrhythmia, electrolyte abnormalities, muscle skeletal pain 05/04/24 11:36 I interpreted the patient's laboratory data results. Based on the laboratory data results, the patient does not have any acute, emergent medical issue. CT scan of the chest with contrast was interpreted by the radiologist and I reviewed the impression. The impression states normal chest pulmonary embolus exam 05/04/24 11:47 I reexamined the patient and informed him of the workup results. His pain is a lot better but still present. He does not want a repeat EKG or troponin level. I will have him sign refusal of tests. Blood Culture(s) Obtained: No Antibiotics given: No Counseled pt/family regarding: lab results, diagnosis, need for follow-up, rad results Medical Desision Making - Diagnostic Testing Diagnostic test were ordered, analyzed, and reviewed by me: Yes Radiological Interpretation: Reviewed by me, Teleradiologist Report - Risk of complications Low Risk: Low risk of morbidity from additional dx testing or treatment - Departure Departure Disposition: Home Clinical Impression: Right-sided chest pain Condition: Stable Critical Care Time: No Referrals: DOCTOR,NO FAMILY [Primary Care Provider] - Follow up/PCP as directed Additional Instructions: Drink plenty of fluids. Take your medications as prescribed. Call your primary care provider and ui developer today, 05/04/2024, to make arrangements for follow-up appointment for further evaluation and management. Prescriptions: Oxycodone HCl/Acetaminophen [Percocet 5-325 mg Tablet] 1 each PO Q12H PRN PRN #6 tablet MDD 2 PRN Reason: Moderate To Severe Pain
[2024-05-04 09:33] VITALS: TEMP 98.3
[2024-05-04] MEDS ORDERED: BABY ASPIRIN 81 MG CHEW ONE (09:36)
[2024-05-04] MEDS ORDERED: Zofran 4 MG/2 ML VIAL ONE (09:36)
[2024-05-04] MEDS ORDERED: Sodium Chloride 0.9% 500 ML 500 ML IV ONE (09:36)
[2024-05-04] MEDS ORDERED: MORPHINE SULFATE 4 MG INJ ONE (09:36)
[2024-05-04] MEDS: MORPHINE SULFATE 4 MG INJ IV ONE (09:37)
[2024-05-04] MEDS: Sodium Chloride 0.9% 500 ML 500 ML IV SCH (09:37)
[2024-05-04] MEDS: Zofran 4 MG/2 ML VIAL IV ONE (09:37)
[2024-05-04] MEDS: BABY ASPIRIN 81 MG CHEW PO ONE (09:38)
[2024-05-04 09:41] LABS: Absolute Neutrophil Ct (ANC) 2.07 x10^3/uL (1.78-5.38); BASOPHIL % 0.9 % (0.2-1.2); Basophil (Absolute #) 0.05 x10^3/uL (0.01-0.08); Eosinophil % 4.5 % (0.8-7.0); Eosinophil (Absolute #) 0.24 x10^3/uL (0.04-0.54); Hematocrit 41.1 % (40.1-51.0); Hemoglobin 14.2 g/dL (13.7-17.5); IMMATURE GRAN # 0.02 x10^3u/L (0.001-0.031); IMMATURE GRAN % 0.4 % (0.001-0.429); Lymphocyte (Absolute #) 2.35 x10^3/uL (1.32-3.57); Lymphocytes % 43.6 % (21.8-53.1); Mean Cell Volume 94.5 fL (79.0-92.2); Mean Corpuscular Hemoglobin 32.6 pg (25.7-32.2); Mean Corpuscular Hgb Concent. 34.5 g/dL (32.3-36.5); Monocyte (Absolute #) 0.66 x10^3/uL (0.30-0.82); Monocytes % 12.2 % (5.3-12.2); Neutrophil % 38.4 % (34.0-67.9); Platelet Count 166 x10^3/uL (163-337); Red Blood Count 4.35 x10^6/uL (4.63-6.08); Red Cell Distribution Width 10.9 % (11.6-14.4); White Blood Count 5.4 x10^3/uL (4.23-9.07)
[2024-05-04 10:18] LABS: INFLUENZA A NEGATIVE (NEGATIVE); INFLUENZA B NEGATIVE (NEGATIVE); RESPIRATORY SYNCTIAL VIRUS NEGATIVE (NEGATIVE); SARS-CoV-2 Xpert Express NEGATIVE (NEGATIVE)
[2024-05-04 10:21] LABS: INR 1.11 (0.8-3.0)
[2024-05-04 10:23] LABS: ANION GAP 15.8 MEQ/L (5-15); BILIRUBIN,TOTAL 0.6 mg/dL (0.2-1.3); Creatinine 1 0.78 mg/dL (0.66-1.25); EST GLOMERULAR FILTRATION RATE 100.8 ML/MIN; Potassium 4.5 mmol/L (3.5-5.1); Total Protein 7.2 g/dL (6.3-8.2)
[2024-05-04 11:04] LABS: Appearance Clear (Clear); Bacteria None Seen /HPF (None Seen); Bilirubin Negative (Negative); Blood Trace (Negative); Epithelial Cells None Seen /HPF (None Seen); Glucose, Urine Negative (Negative); Hyaline Casts NONE SEEN /LPF (0-2); Ketones Trace (Negative); Leukocyte Esterase Negative (Negative); Nitrite Negative (Negative); Protein,Urine Dip Negative (Negative); RBC 0-2 /HPF (0-5); Specific Gravity <=1.005 (1.005-1.030); Urobilinogen 0.2 mg/dL (0.2); WBC 0-2 /HPF (0-5)
--- NOTE | 2024-05-04 11:34 | XRAY ---
Indication: Right chest pain. Multiple contiguous axial images obtained through the chest using 80 cc Isovue 370 contrast and PE protocol. Comparison: October 17, 2022 Good opacification pulmonary arteries to include the lobar and segmental branches. Again no pulmonary embolus. Heart not enlarged. Aorta is normal in course and caliber. No pathologic mediastinal/hilar lymphadenopathy. Lungs inflated and remains clear. Bony thorax intact again with mild degenerative changes throughout spine. Limited upper abdomen again demonstrates fatty liver. Impression: Continued normal CT chest pulmonary embolus exam. Again incidental fatty liver.
[2024-05-04] MEDS ORDERED: MORPHINE SULFATE 2 MG INJ ONE (11:53)
[2024-05-04] MEDS: MORPHINE SULFATE 2 MG INJ IV ONE (11:54)
[2024-05-04 12:06] VITALS: BP 118/53; PULSE 76; RESP 16; O2SAT 95
== END 2024-05-04 12:12 | disposition home or self-care (01) ==
LOC: ED 09:16
DX: R07.9 Chest pain, unspecified (principal); I11.0 Hypertensive heart disease with heart failure; I50.9 Heart failure, unspecified; Z79.01 Long term (current) use of anticoagulants; Z86.711 Personal history of pulmonary embolism
CPT/HCPCS: 0241U; 36000; 36415; 71260; 80053; 81001; 84484; 85025; 85610; 93005; 93041; 94760; 96374; 96375; 96376; 99284; J2270; J2405; A9270-GY